=== PATIENT | female | born 1985 | race African-American/Black ===

== ENCOUNTER 2017-05-26 09:03 | Emergency (ER) | payer SELFPAY ==
[2017-05-26] MEDS ORDERED: Acetaminophen 500 MG TAB ONE (11:27)
--- NOTE | 2017-05-26 12:08 | RAD ---
FRONTAL AND LATERAL IMAGING OF THE CHEST: DATE: 05/26/17. COMPARISON: 04/12/15. HISTORY: Neck pain and back pain. FINDINGS: There is stable distortion of the lateral ribs within the mid right hemithorax. Heart and mediastina l contours are stable. There is no pneumothorax, pleural fluid, focal consolidation, or alveolar barbara ma. 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 No acute findings are noted. IMPRESSION: Congenital osseous deformities as detailed above, stable. No focal consolidation or evidence of pulm onary edema. POS: [facility]
[2017-05-26 12:19] LABS: #Basophils 0.1 thou/uL (0.0-0.2); #Lymphocytes 1.7 thou/uL (1.20-3.40); #Monocytes 0.3 thou/uL (0.11-0.59); #Neutrophils 4.6 thou/uL (1.40-6.50); %Basophils 0.8 % (0.0-1.0); %Eosinophils 0.3 % (0.0-10.0); %Lymphocytes 25.8 % (21.0-51.0); %Monocytes 4.7 % (0.0-10.0); Hematocrit 39.7 % (36.0-47.0); Mean Platelet Volume 9.5 fL (7.4-10.4); Red Blood Cell (RBC) Count 4.65 mill/uL (4.20-5.40); White Blood Cell (WBC) Count 6.7 thou/uL (4.8-10.8)
[2017-05-26 12:41] LABS: Anion Gap 8 mmol/L (10-20); BUN (Urea Nitrogen) 7 mg/dL (7.0-18.7); Calc. Creatinine Clearance 0 mL/min (70-130); Calcium 7.2 mg/dL (7.8-10.44); Carbon Dioxide 31 mmol/L (22-29); Chloride 103 mmol/L (98-107); Estimated GFR-MDRD Greater than 90
[2017-05-26 12:48] LABS: Troponin I Less than 0.010 ng/mL (< 0.028)
== END 2017-05-26 14:24 | disposition home or self-care (01) ==
LOC: ERS 09:03
DX: N63.0 Unspecified lump in unspecified breast (principal); E10.9 Type 1 diabetes mellitus without complications
CPT/HCPCS: 71020; 80048; 82553; 84484; 85025; 85379; 93005; 96360

== ENCOUNTER 2017-10-10 14:33 | Outpatient (CLI) | payer MEDICAID | END 2017-10-10 14:34 | disposition home or self-care (01) | LOC: BICMAMMO 14:33 | PROVIDERS: ATTEND Nurse Practitioner Women's Health | DX: N63.10 Unspecified lump in the right breast, unspecified quadrant (principal); N63.20 Unspecified lump in the left breast, unspecified quadrant | CPT/HCPCS: 77066; G0279 ==

== ENCOUNTER 2017-10-16 09:37 | Emergency (ER) | payer MEDICAID, SELFPAY ==
[2017-10-16 10:26] LABS: #Lymphocytes 1.3 thou/uL (1.20-3.40); #Monocytes 0.2 thou/uL (0.11-0.59); #Neutrophils 4.8 thou/uL (1.40-6.50); %Basophils 0.6 % (0.0-1.0); %Eosinophils 0.7 % (0.0-10.0); %Lymphocytes 20.5 % (21.0-51.0); %Monocytes 3.5 % (0.0-10.0); %Neutrophils 74.7 % (42.0-75.0); Hemoglobin 12.6 g/dL (12.0-16.0); Mean Corpuscular HGB CONC 34.1 g/dL (32.0-36.0); Mean Corpuscular Hemoglobin 28.7 pg (27.0-31.0); Mean Platelet Volume 9.1 fL (7.4-10.4); Platelet Count 183 thou/uL (130-400); RBC Distribution Width 11.8 % (11.5-14.5); Red Blood Cell (RBC) Count 4.38 mill/uL (4.20-5.40); White Blood Cell (WBC) Count 6.4 thou/uL (4.8-10.8)
[2017-10-16 10:49] LABS: ALT (SGPT) 9 U/L (8-55); AST (SGOT) 12 U/L (5-34); Albumin 3.5 g/dL (3.5-5.0); Alkaline Phosphatase 64 U/L (40-150); Anion Gap 12 mmol/L (10-20); BUN (Urea Nitrogen) 10 mg/dL (7.0-18.7); Bilirubin, Total 0.4 mg/dL (0.2-1.2); Calc. Creatinine Clearance 0 mL/min (70-130); Calcium 6.6 mg/dL (7.8-10.44); Carbon Dioxide 26 mmol/L (22-29); Chloride 101 mmol/L (98-107); Estimated GFR-MDRD Greater than 90; Globulin 3.4 g/dL (2.4-3.5); Glucose 295 mg/dL (70-105); Lipase 70 U/L (8-78); Protein, Total 6.9 g/dL (6.0-8.3); Sodium 135 mmol/L (136-145)
[2017-10-16 11:50] LABS: Bilirubin Negative (Negative); Blood, Urine Small (Negative); Clarity CLEAR (Clear); Glucose, Urine (Dipstick) 500 mg/dL (Negative); Leukocyte Negative (Negative); Nitrite Negative (Negative); Protein, Urine (Dipstick) Trace mg/dL (Neg-Trace); Specific Gravity, Urine 1.016 (1.002-1.036); Urobilinogen 0.2 mg/dL (0.2-1.0)
[2017-10-16 11:58] LABS: Bacteria/HPF None Seen HPF (None Seen); Hyaline Casts/LPF 0-3 HYALINE CAST LPF (0-3 Hyaline); Pathc Cast-AUWi Flag 0.14 (0-2.49); Pregnancy Test - Urine (BHCG) Negative (Negative); Pregu Control Background? CLEAR/WHITE (CLR/WHITE); Pregu Control Bar Appear? YES (CONTROL BAR); Specific Gravity 1.016 (1.002-1.036); Squamous Epithelial 0-3 HPF (0-3); WBC/HPF None Seen HPF (0-3)
--- NOTE | 2017-10-16 13:08 | CT ---
CT OF ABDOMEN AND PELVIS PERFORMED WITH INTRAVENOUS CONTRAST ENHANCEMENT: HISTORY: Abdominal pain x 3 days. COMPARISON: A 12/17/13 study. Review is also made of a 01/10/17 study. FINDINGS: The lung bases are clear. The liver, spleen, pancreas, and gallbladder regions appear unremarkable. Right and left adrenal glands and right and left kidneys are normal in size. There is no significant periaortic or mesenteric lymphadenopathy. CT OF PELVIS PERFORMED WITH INTRAVENOUS CONTRAST ENHANCEMENT: The lack of oral contrast and lack of intraabdominal fat significantly degrades detail. I see what I believe to be a normal appendix. There is a cystic-appearing structure which is probably a right ad nexal cyst, although it could be an unopacified bowel loops. It measures 3.1 cm in size. It has stevie e internal septation, probably a complex cyst. There is no significant free fluid seen. IMPRESSION: Lack of intraabdominal fat degrades the detail. I do not see any evidence for appendicitis. There i s a probable right ovarian cyst present. Pelvic ultrasound may be helpful in further assessment. POS: [facility]
[2017-10-16] MEDS ORDERED: ISOVUE-370 76%-LOCM 1 ML ONE (13:38)
== END 2017-10-16 14:17 | disposition home or self-care (01) ==
LOC: ERS 09:37
DX: N83.201 Unspecified ovarian cyst, right side (principal); E10.9 Type 1 diabetes mellitus without complications
CPT/HCPCS: 36415; 36416; 74177; 80053; 81003; 81015; 81025; 83690; 85025

== ENCOUNTER 2018-07-23 12:07 | Emergency (ER) | payer BC, MEDICAID ==
[~2018-07-23 12:07] MED LIST: ISOVUE-370 76%-LOCM 1 ML ONE
[2018-07-23 13:50] LABS: #Eosinphils 0.1 thou/uL (0.0-0.7); #Lymphocytes 1.6 thou/uL (1.20-3.40); #Monocytes 0.3 thou/uL (0.11-0.59); #Neutrophils 4.6 thou/uL (1.40-6.50); %Basophils 0.7 % (0.0-1.0); %Eosinophils 0.8 % (0.0-10.0); %Lymphocytes 24.9 % (21.0-51.0); %Monocytes 3.8 % (0.0-10.0); %Neutrophils 69.9 % (42.0-75.0); Hemoglobin 12.9 g/dL (12.0-16.0); Mean Corpuscular HGB CONC 32.9 g/dL (32.0-36.0); Mean Corpuscular Hemoglobin 27.6 pg (27.0-31.0); Mean Corpuscular Volume 83.8 fL (78.0-98.0); Platelet Count 184 thou/uL (130-400); RBC Distribution Width 11.6 % (11.5-14.5); Red Blood Cell (RBC) Count 4.67 mill/uL (4.20-5.40); White Blood Cell (WBC) Count 6.5 thou/uL (4.8-10.8)
[2018-07-23 14:09] LABS: BHCG - Serum Negative (NEGATIVE); Pregs Control Background? CLEAR/WHITE (CLR/WHITE); Pregs Control Bar Appear? YES (CONTROL BAR)
[2018-07-23 14:10] LABS: ALT (SGPT) Less than 7 U/L (8-55); AST (SGOT) 10 U/L (5-34); Albumin 3.9 g/dL (3.5-5.0); Alkaline Phosphatase 76 U/L (40-150); Anion Gap 12 mmol/L (10-20); BUN (Urea Nitrogen) 9 mg/dL (7.0-18.7); Bilirubin, Total 0.6 mg/dL (0.2-1.2); Calc. Creatinine Clearance 0 mL/min (70-130); Calcium 7.4 mg/dL (7.8-10.44); Carbon Dioxide 28 mmol/L (22-29); Chloride 99 mmol/L (98-107); Estimated GFR-MDRD 84; Globulin 3.8 g/dL (2.4-3.5); Glucose 373 mg/dL (70-105); Lipase 75 U/L (8-78); Potassium 4.1 mmol/L (3.5-5.1); Protein, Total 7.7 g/dL (6.0-8.3); Sodium 135 mmol/L (136-145)
[2018-07-23 14:35] LABS: Bilirubin Negative (Negative); Blood, Urine Large (Negative); Clarity CLOUDY (Clear); Glucose, Urine (Dipstick) >=1000 mg/dL (Negative); Leukocyte Small (Negative); Nitrite Negative (Negative); Protein, Urine (Dipstick) 100 mg/dL (Neg-Trace); Specific Gravity, Urine 1.034 (1.002-1.036)
[2018-07-23 14:36] LABS: Bacteria/HPF None Seen HPF (None Seen); Hyaline Casts/LPF 0-3 HYALINE CAST LPF (0-3 Hyaline); Pathc Cast-AUWi Flag 0.53 (0-2.49); RBC/HPF GREATER THAN 50-TNTC HPF (0-3); WBC/HPF 21-50 HPF (0-3)
--- NOTE | 2018-07-23 15:19 | CT ---
CT ABDOMEN AND PELVIS WITH IV CONTRAST: HISTORY: Abdominal pain. Umbilical hernia. COMPARISON: 10/16/2017. FINDINGS: Lung bases are clear. The liver, spleen, kidneys, adrenal glands, and pancreas have a normal CT appe arance. No evidence of umbilical hernia. Appendix not well visualized. No inflammation is apparent . At the expected location of the right adnexa is a well-circumscribed oval homogeneous fluid densit y mass measuring up to 4.7 cm. IMPRESSION: Large right ovarian cyst. POS: [facility]
== END 2018-07-23 15:57 | disposition home or self-care (01) ==
LOC: ERS 12:07
DX: R10.33 Periumbilical pain (principal); E10.9 Type 1 diabetes mellitus without complications
CPT/HCPCS: 36415; 74177; 80053; 81003; 81015; 83605; 83690; 84703; 85025; 87086; Q9966

== ENCOUNTER 2018-08-19 00:39 | Observation (INO) | payer BC ==
[2018-08-19 01:32] LABS: BHCG - Serum Negative (NEGATIVE); Pregs Control Background? CLEAR/WHITE (CLR/WHITE); Pregs Control Bar Appear? YES (CONTROL BAR)
[2018-08-19 01:34] LABS: Hemoglobin 12.2 g/dL (12.0-16.0); Mean Corpuscular HGB CONC 32.5 g/dL (32.0-36.0); Mean Corpuscular Hemoglobin 27.5 pg (27.0-31.0); Mean Corpuscular Volume 84.7 fL (78.0-98.0); Mean Platelet Volume 9.6 fL (7.4-10.4); Platelet Count 174 thou/uL (130-400); RBC Distribution Width 11.9 % (11.5-14.5); Red Blood Cell (RBC) Count 4.44 mill/uL (4.20-5.40); White Blood Cell (WBC) Count 15.4 thou/uL (4.8-10.8)
[2018-08-19 01:40] LABS: Band 8 % (5-11); Lymphocytes 11 % (21-51); MDiff Complete? YES; Neutrophil 81 % (42-75); Platelet Morphology Comment Appears Adequate
[2018-08-19 01:50] LABS: ALT (SGPT) 8 U/L (8-55); AST (SGOT) 12 U/L (5-34); Albumin 3.3 g/dL (3.5-5.0); Alkaline Phosphatase 59 U/L (40-150); Anion Gap 10 mmol/L (10-20); BUN (Urea Nitrogen) 9 mg/dL (7.0-18.7); Bilirubin, Total 0.9 mg/dL (0.2-1.2); Calc. Creatinine Clearance 0 mL/min (70-130); Calcium 7.1 mg/dL (7.8-10.44); Carbon Dioxide 28 mmol/L (22-29); Chloride 101 mmol/L (98-107); Estimated GFR-MDRD Greater than 90; Globulin 3.3 g/dL (2.4-3.5); Glucose 329 mg/dL (70-105); Lipase 32 U/L (8-78); Magnesium 1.3 mg/dL (1.6-2.6); Potassium 3.2 mmol/L (3.5-5.1); Protein, Total 6.6 g/dL (6.0-8.3); Sodium 136 mmol/L (136-145)
[2018-08-19 02:23] LABS: Bilirubin Negative (Negative); Blood, Urine Small (Negative); Clarity CLEAR (Clear); Glucose, Urine (Dipstick) >=1000 mg/dL (Negative); Leukocyte Negative (Negative); Nitrite Negative (Negative); Protein, Urine (Dipstick) 100 mg/dL (Neg-Trace); Specific Gravity, Urine 1.037 (1.002-1.036)
[2018-08-19 02:26] LABS: Bacteria/HPF Rare-Few HPF (None Seen); Hyaline Casts/LPF 4-6 HYALINE CAST LPF (0-3 Hyaline); Pathc Cast-AUWi Flag 1.01 (0-2.49); Squamous Epithelial 0-3 HPF (0-3); WBC/HPF 0-3 HPF (0-3)
[2018-08-19 02:30] LABS: Phosphorus 4.3 mg/dL (2.3-4.7)
[2018-08-19 02:49] LABS: Base Excess-Venous 1.3 mmol/L (-2.0 to 3.0); Bicarbonate (HCO3v) 26.7 mmol/L (22.0-28.0); CO2 Tension (PvCO2) 44.3 mmHg (40.0-50.0); Calcium, Ionized 0.79 mmol/L (See Comments:); Chloride 102 mmol/L (98-107); Hemoglobin - Calc 12.5 g/dL (12.0-16.0); O2 Tension (PvO2) 49.4 mmHg (35.0-45.0); Potassium 3.1 mmol/L (3.5-5.1); Sodium 138 mmol/L (138-145); T. Carbon Dioxide 28.1 mmol/L (22.0-28.0); pH (Venous) 7.389 (7.320-7.430); vO2 Saturation-calc 83.9 % (60.0-85.0)
[2018-08-19] MEDS ORDERED: Mag-Al 1200 mg/1200 mg/30 ML UDCUP ONE (03:17)
[2018-08-19] MEDS ORDERED: Lidocaine Viscous Sol 2% 15 ml UD Cup ONE (03:17)
[2018-08-19] MEDS ORDERED: Potassium Chloride 20 MEQ TAB ONE (04:11)
[2018-08-19] MEDS ORDERED: Calcium Gluc 4.6 MEQ/10 ML (100 MG/ML) ONE (04:17)
[2018-08-19] MEDS ORDERED: Magnesium 2 GM/50 ML BAG (IN WATER) ONE (04:17)
[2018-08-19] MEDS ORDERED: Insulin Regular 300 UNITS/3 ML VIAL ONE (04:19)
[2018-08-19] MEDS ORDERED: Piperacillin/Tazobactam 3.375 GM VIAL ONE (04:32)
[2018-08-19] MEDS ORDERED: Ondansetron PF 4 MG/2 ML Vial ONE (06:41)
[2018-08-19] MEDS ORDERED: Morphine 4 MG/ML VIAL ONE (07:22)
--- NOTE | 2018-08-19 07:44 | RAD ---
CHEST 1 VIEW: HISTORY: Pain. COMPARISON: 06/11/2012. FINDINGS: Enlarged cardiac silhouette. The pulmonary vessels and hilum are normal. Costophrenic angles are cl ear. No masses or consolidation. No pneumothorax or osseous abnormalities. IMPRESSION: No acute cardiopulmonary process. POS: [facility]
--- NOTE | 2018-08-19 08:04 | ULT ---
PRELIMINARY REPORT/[facility]/EMERGENTY AFTER-HOURS PROCEDURE US Pelvis Complete, Transabdominal EXAM DATE/TIME: 08/19/2018 1:24 AM CLINICAL HISTORY: 33 years old, female; Pain and signs and symptoms; Constipation; Slow transit; Pelvic pain TECHNIQUE: Real-time transabdominal pelvic ultrasound with image documentation. Complete exam. COMPARISON: No relevant prior studies available. FINDINGS: Uterus/cervix: The uterus measures 7.8 x 4.5 x 6.0 cm. Endometrial stripe thickness is 8 mm. Right adnexa: The right ovary measures 3.0 x 1.7 x 1.8 cm with normal Doppler flow. Left adnexa: The left ovary measures 3.8 x 3.3 x 3.3 cm with normal Doppler flow. Free fluid: None. Bladder: Normal. IMPRESSION: No acute sonographic pathology. Thank you for allowing us to participate in the care of your patient. Dictated and Authenticated by: Neil José MD 08/19/2018 2:18 AM Central Time ([place] & [place]) FINAL REPORT PELVIC ULTRASOUND: HISTORY: Pelvic pain. Symptoms x 2 days. COMPARISON: None. TECHNIQUE: Transabdominal imaging of the pelvis is performed. Ovaries are interrogated with morfin scale, color f low, Doppler imaging, and spectral waveform analysis. FINDINGS: This report is in agreement with the preliminary report by [facility]. Slightly limited evaluation due to b owel gas. No abnormalities within the pelvis. Normal endometrium with an 8 mm thickness is noted. Both ovaries have a normal echotexture with vascular flow. POS: [facility]
--- NOTE | 2018-08-19 09:04 | CT ---
PRELIMINARY REPORT/[facility]/EMERGENTY AFTER-HOURS PROCEDURE Addendum created by Trinh Moser MD on 08/19/2018 4:54 AM Central Time ([place]) THIS REPORT CONTAI NS FINDINGS THAT MAY BE CRITICAL TO PATIENT CARE. The findings were verbally communicated via telepho ne conference with GENNARO GARCIA at 4:54 AM GRAPHICS SOFTWARE ENGINEER on 08/19/2018. The findings were acknowledged and unde rstood. Initial Report created on 08/19/2018 4:51 AM Central Time ([place] & [place]) CT Abdomen and Pelvis With Contrast EXAM DATE/TIME: 08/19/2018 3:34 AM CLINICAL HISTORY: 33 years old, female; Pain; Abdominal pain; Generalized; Patient HX: PT reports having a couple day h istory of generalized abdominal pain. PT reports it hurts to move due to the pain. States pain as sha rp. Reports worse on both lower quadrants. Reports nausea and vomiting x1. Reports having chills. Den ies fever TECHNIQUE: Axial computed tomography images of the abdomen and pelvis with intravenous contrast. Coronal reforma tted images were created and reviewed. COMPARISON: US MANAGER MAIL 08/19/2018 1:24 AM FINDINGS: Lower thorax: No acute findings. ABDOMEN: Liver: Normal. No mass. Gallbladder and bile ducts: Normal. No calcified stones. No ductal dilation. Pancreas: Normal. No ductal dilation. Spleen: Normal. No splenomegaly. Adrenals: Normal. No mass. Kidneys and ureters: Normal. No hydronephrosis. Stomach and bowel: Mild jejunal wall thickening likely represents enteritis. Appendix: The base of the appendix is minimally thickened measuring 8 mm with enhancing wall. PELVIS: Bladder: Mild thickening of the urinary bladder wall is likely due to underdistention. Cystitis is no t excluded. Reproductive: Dilated periuterine vessels on both sides worse on the left likely represents pelvic co ngestion syndrome. ABDOMEN and PELVIS: Intraperitoneal space: Moderate free fluid is seen in the pelvis. No evidence of free air in the abdo men. Bones/joints: No acute fracture. No dislocation. Soft tissues: Unremarkable. Vasculature: Normal. No abdominal aortic aneurysm. Lymph nodes: Normal. No enlarged lymph nodes. IMPRESSION: 1. The base of the appendix is minimally thickened measuring 8 mm with enhancing wall. Early appendic itis is not excluded. 2. Mild jejunal wall thickening likely represents enteritis. 3. Dilated periuterine vessels on both sides worse on the left likely represents pelvic congestion sy ndrome. 4. Moderate free fluid in the pelvis is likely reactive. Thank you for allowing us to participate in the care of your patient. Dictated and Authenticated by: Trinh Moser MD 08/19/2018 4:51 AM Central Time ([place]) FINAL REPORT ABDOMEN CT WITH CONTRAST PELVIC CT WITH CONTRAST: HISTORY: Generalized abdominal pain. Vomiting and nausea. Chills. COMPARISON: 07/23/2018. FINDINGS: This report is in agreement with the preliminary report by [facility]. There is fluid attenuation and mild prominence of the base and proximal aspect of the appendix. The distal portion of the appendix is st ill air filled. Correlate for early appendicitis. There is mild thickening of the small bowel wall, specifically at the level of the jejunum. Correlate for enteritis. There are asymmetrically enlarg ed left pelvic vessels. Correlate for pelvic congestion syndrome. There is free fluid in the pelvis which may be reactive. POS: [facility]
--- NOTE | 2018-08-19 09:37 | CT ---
CT ABDOMEN AND PELVIS WITH IV CONTRAST: INDICATIONS: Rule out appendicitis. COMPARISON: Recent CT of the abdomen and pelvis dated 08/19/2018. CONTRAST: IV contrast 96 mL. FINDINGS: The appendix, in the right lower quadrant, measures 6 mm, without periappendiceal fat stranding or a drainable fluid collection. There is minimal free fluid within the pelvis. There is a mild amount o f retained stool within the colon. The lung bases are clear. The liver, pancreas, adrenal glands, a nd kidneys appear within normal limits. There is a butterfly vertebra involving T9. IMPRESSION: 1. The appendix measures 6 mm, within the right lower quadrant, without periappendiceal fat strandin g or fluid that would be suspicious for appendicitis. There is no overt CT evidence to suggest appen dicitis. Recommend correlation with clinical examination. 2. Other findings as detailed above. POS: [facility]
[2018-08-19] MEDS ORDERED: Iopamidol 370 76% 50 ML VIAL FS ONE (10:09)
[2018-08-19] MEDS ORDERED: ISOVUE-370 76%-LOCM 1 ML ONE (10:09)
[2018-08-19] MEDS ORDERED: Promethazine HCl 25 MG/ML VIAL IM PRN (12:12)
[2018-08-19] MEDS ORDERED: Dextrose 50% Abboject 50 ML SYRINGE SLOW IVP PRN (12:12)
[2018-08-19] MEDS ORDERED: Morphine 4 MG/ML VIAL SLOW IVP PRN ×2 (12:12)
[2018-08-19] MEDS ORDERED: HumaLOG 300 UNITS/3 ML VIAL SC PRN (12:12)
[2018-08-19] MEDS ORDERED: Dextrose 5% in Water 1,000 ML IV PRN (12:12)
[2018-08-19] MEDS ORDERED: Ondansetron PF 4 MG/2 ML Vial IVP PRN (12:12)
[2018-08-19] MEDS ORDERED: hydrALAZINE 20 MG/ML VIAL SLOW IVP PRN (12:12)
[2018-08-19] MEDS: Acetaminophen 1,000 MG in Premix Bag 1 BAG IVPB PRN ×2 (12:59→20:26)
[2018-08-19] MEDS: Sodium Chloride 0.9% 1,000 ML IV SCH ×2 (12:59→23:12)
[2018-08-19] MEDS: Piperacillin/Tazobactam 3.375 GM in Sodium Chloride 0.9% 100 ML IVPB SCH ×3 (13:00→23:12)
[2018-08-19 14:55] VITALS: BMI 22.4
[2018-08-19] MEDS ORDERED: Magnesium 2 GM/50 ML 2 GM in Premix Bag 1 BAG IVPB SCH (15:00)
[2018-08-19] MEDS: Famotidine 20 MG TAB PO SCH (20:26)
--- NOTE | 2018-08-19 22:05 | HP ---
CHIEF COMPLAINT: Lower abdominal pain. HISTORY OF PRESENT ILLNESS: This is a 33-year-old female with a history of uncontrolled diabetes mellitus, who presents with a history of diffuse abdominal pain associated with constipation for the last 5 days. She had a fever in the ambulance and so she was seen in the ER under "sepsis protocol." Her initial CT without contrast showed dilation of a portion of her appendix with the possibility of appendicitis, but also a small amount of free fluid. She had similar symptoms a month ago and was found to have a large right ovarian cyst. She never had followup for that. She denies a history of chronic abdominal pain or inflammatory bowel disease, specifically Crohn disease. No history of diarrhea, bloody diarrhea, food fear, chronic nausea, vomiting, or weight loss. She is diabetic, but she does not check her sugars much and does not consistently take her medications. PAST MEDICAL HISTORY: Diabetes mellitus, insulin-dependent. PAST SURGICAL HISTORY: She denies. MEDICATIONS TAKEN DAILY: None. SOCIAL HISTORY: Occasional smoking. Occasional alcohol. No other drugs. REVIEW OF SYSTEMS: Ten-system review of systems is otherwise negative, unless described above. PHYSICAL EXAMINATION: HEENT: Sclerae are anicteric. Oropharynx is clear. NECK: No lymphadenopathy. CHEST: Clear. HEART: Regular rate and rhythm. ABDOMEN: Soft. She is mildly tender in the lower abdomen without guarding or rebound. EXTREMITIES: No ischemia or edema to extremities. LABORATORY DATA: White cell count is 15, hemoglobin is 12. Creatinine is 0.81. Liver function tests normal. Initial CT scan, base of the appendix minimally thickened, mild jejunal wall thickening, free fluid. Repeat CT with contrast showed 6-mm appendix without fat stranding or fluid. Pelvic ultrasound shows no acute findings. ASSESSMENT: 1. Lower abdominal discomfort with free fluid on CT scan, but no significant signs of appendicitis except for 6-mm in diameter appendix without periappendiceal inflammation. 2. History of right ovarian cyst, now absent, free fluid in the abdomen could be secondary to that. PLAN: Admit to observation. Insulin sliding scale. Replete Mag. Repeat her white blood cell count tomorrow. If pain is not improved or if white blood cell count does not resolve, plan laparoscopy. Job ID: [id number]
[2018-08-19] MEDS: Famotidine/PF 20 mg/2ml Vial SLOW IVP SCH (22:45)
[2018-08-20] MEDS: Piperacillin/Tazobactam 3.375 GM in Sodium Chloride 0.9% 100 ML IVPB SCH ×2 (05:39→12:01)
[2018-08-20 06:18] LABS: #Basophils 0.1 thou/uL (0.0-0.2); #Eosinphils 0.1 thou/uL (0.0-0.7); #Lymphocytes 1.3 thou/uL (1.20-3.40); #Monocytes 0.3 thou/uL (0.11-0.59); #Neutrophils 3.7 thou/uL (1.40-6.50); %Basophils 0.9 % (0.0-1.0); %Eosinophils 1.6 % (0.0-10.0); %Lymphocytes 24.2 % (21.0-51.0); %Neutrophils 68.3 % (42.0-75.0); Mean Corpuscular HGB CONC 32.8 g/dL (32.0-36.0); Mean Corpuscular Hemoglobin 28.5 pg (27.0-31.0); Mean Corpuscular Volume 86.7 fL (78.0-98.0); Mean Platelet Volume 9.3 fL (7.4-10.4); Platelet Count 170 thou/uL (130-400); RBC Distribution Width 12.1 % (11.5-14.5); Red Blood Cell (RBC) Count 3.88 mill/uL (4.20-5.40); White Blood Cell (WBC) Count 5.4 thou/uL (4.8-10.8)
[2018-08-20 06:39] LABS: Anion Gap 14 mmol/L (10-20); BUN (Urea Nitrogen) 7 mg/dL (7.0-18.7); Calc. Creatinine Clearance 102 mL/min (70-130); Calcium 6.2 mg/dL (7.8-10.44); Carbon Dioxide 20 mmol/L (22-29); Chloride 108 mmol/L (98-107); Estimated GFR-MDRD Greater than 90; Glucose 110 mg/dL (70-105); Potassium 3.4 mmol/L (3.5-5.1); Sodium 139 mmol/L (136-145)
[2018-08-20] MEDS: Famotidine 20 MG TAB PO SCH (08:08)
[2018-08-20] MEDS: Sodium Chloride 0.9% 1,000 ML IV SCH ×2 (08:09→14:41)
[2018-08-20] MEDS: Famotidine/PF 20 mg/2ml Vial SLOW IVP SCH (08:09)
[2018-08-20] MEDS ORDERED: Acetaminophen 500 MG TAB PO PRN (14:19)
--- NOTE | 2018-08-20 14:37 | DIS ---
DATE OF ADMISSION: 08/19/2018 DATE OF DISCHARGE: 08/20/2018 ADMISSION DIAGNOSIS: Lower abdominal pain. DISCHARGE DIAGNOSES: 1. Lower abdominal pain. 2. Ruptured ovarian cyst. CONDITION ON DISCHARGE: Improved. HOSPITAL COURSE: The patient was admitted with a small amount of dilation of her base of appendix, but no inflammatory change consistent with appendicitis. She has had a previous large right ovarian cyst that was not seen on this most recent CT. She had small amount of free fluid in the pelvis. She was admitted for observation, recheck infectious count and rule out appendicitis. Her exam is improved. She is afebrile. Her pain is resolved. She is nontender in the right lower quadrant now. Her white blood cell count is repeated and normal. She has been afebrile overnight. She is discharged home. She will follow up with me in the office next week. Job ID: [id number]
[2018-08-20 15:31] VITALS: BP 141/91; TEMP 98.2
== END 2018-08-20 16:16 | disposition home or self-care (01) ==
LOC: ERS 00:39 → SURG A 10:41 → INTOOBSV 10:41
PROVIDERS: ADMIT Surgery; ATTEND Surgery
DX: N83.201 Unspecified ovarian cyst, right side (principal); E11.9 Type 2 diabetes mellitus without complications; F17.200 Nicotine dependence, unspecified, uncomplicated; Z79.4 Long term (current) use of insulin
CPT/HCPCS: 36415; 36416; 71045; 74177; 76856; 80048; 80053; 81003; 81015; 82010; 82330; 82803; 83605; 83690; 83735; 84100; 84145; 84484; 84703; 85025; 87040; 87077; 87086; 87149; 87804; 93976; 96361; 96365; 96366; 96367; 96375; 96376; G0378; J0131; J1815; J2270; J2405; J2543; J3370; J3475; J7050; Q9966; Q9967; S0028

== ENCOUNTER 2018-11-17 20:20 | Emergency (ER) | payer BC ==
[2018-11-17 22:11] LABS: Bilirubin Negative (Negative); Blood, Urine Small (Negative); Clarity CLEAR (Clear); Glucose, Urine (Dipstick) >=1000 mg/dL (Negative); Leukocyte Negative (Negative); Nitrite Negative (Negative); Protein, Urine (Dipstick) 30 mg/dL (Neg-Trace); Specific Gravity, Urine 1.029 (1.002-1.036)
[2018-11-17 22:13] LABS: Pregnancy Test - Urine (BHCG) Negative (Negative); Pregu Control Background? CLEAR/WHITE (CLR/WHITE); Pregu Control Bar Appear? YES (CONTROL BAR); Specific Gravity 1.029 (1.002-1.036)
[2018-11-17] MEDS ORDERED: Ketorolac Tromethamine 30 MG/ML VIAL ONE (22:14)
[2018-11-17] MEDS ORDERED: Acetaminophen 500 MG TAB ONE (22:14)
[2018-11-17] MEDS ORDERED: Ondansetron PF 4 MG/2 ML Vial ONE (22:14)
[2018-11-17 22:21] LABS: Bacteria/HPF Rare-Few HPF (None Seen); Hyaline Casts/LPF 0-3 HYALINE CAST LPF (0-3 Hyaline); WBC/HPF 0-3 HPF (0-3)
== END 2018-11-17 23:40 | disposition home or self-care (01) ==
LOC: ERS 20:20
DX: R51 Headache (principal); E10.9 Type 1 diabetes mellitus without complications
CPT/HCPCS: 81003; 81015; 81025; 96361; 96374; 96375; J1885; J2405

== ENCOUNTER 2018-12-14 12:24 | Emergency (ER) | payer BC ==
[2018-12-14 14:11] LABS: Bilirubin Negative (Negative); Blood, Urine Small (Negative); Clarity CLEAR (Clear); Glucose, Urine (Dipstick) >=1000 mg/dL (Negative); Leukocyte Negative (Negative); Nitrite Negative (Negative); Protein, Urine (Dipstick) Negative (Neg-Trace); Urobilinogen 0.2 mg/dL (0.2-1.0); pH, Urine 5.5 (5.0-9.0)
[2018-12-14 14:13] LABS: Bacteria/HPF None Seen HPF (None Seen); Hyaline Casts/LPF 0-3 HYALINE CAST LPF (0-3 Hyaline); RBC/HPF 0-3 HPF (0-3); Squamous Epithelial None Seen HPF (0-3); WBC/HPF None Seen HPF (0-3)
== END 2018-12-14 14:06 | disposition home or self-care (01) ==
LOC: ERS 12:24
DX: K42.9 Umbilical hernia without obstruction or gangrene (principal); L03.316 Cellulitis of umbilicus; E10.9 Type 1 diabetes mellitus without complications
CPT/HCPCS: 81003; 81015

== ENCOUNTER 2019-03-09 15:06 | Outpatient (CLI) | payer BC ==
[2019-03-09 16:00] LABS: #Eosinphils 0.1 thou/uL (0.0-0.7); #Lymphocytes 1.5 thou/uL (1.20-3.40); #Monocytes 0.3 thou/uL (0.11-0.59); #Neutrophils 3.9 thou/uL (1.40-6.50); %Basophils 0.4 % (0.0-1.0); %Eosinophils 0.9 % (0.0-10.0); %Lymphocytes 26.3 % (21.0-51.0); %Monocytes 5.5 % (0.0-10.0); Hemoglobin 12.1 g/dL (12.0-16.0); Mean Corpuscular HGB CONC 34.2 g/dL (32.0-36.0); Mean Corpuscular Hemoglobin 28.5 pg (27.0-31.0); Mean Corpuscular Volume 83.3 fL (78.0-98.0); Mean Platelet Volume 9.6 fL (7.4-10.4); Platelet Count 183 thou/uL (130-400); RBC Distribution Width 11.5 % (11.5-14.5); Red Blood Cell (RBC) Count 4.27 mill/uL (4.20-5.40); White Blood Cell (WBC) Count 5.9 thou/uL (4.8-10.8)
[2019-03-09 16:12] LABS: BHCG - Serum Negative (NEGATIVE); Pregs Control Background? CLEAR/WHITE (CLR/WHITE); Pregs Control Bar Appear? YES (CONTROL BAR)
[2019-03-09 16:18] LABS: Anion Gap 11 mmol/L (10-20); BUN (Urea Nitrogen) 8 mg/dL (7.0-18.7); Calc. Creatinine Clearance 0 mL/min (70-130); Calcium 7.2 mg/dL (7.8-10.44); Carbon Dioxide 30 mmol/L (22-29); Chloride 99 mmol/L (98-107); Estimated GFR-MDRD 87; Glucose 320 mg/dL (70-105); Potassium 3.2 mmol/L (3.5-5.1); Sodium 137 mmol/L (136-145)
--- NOTE | 2019-03-10 16:54 | EKG ---
Test Reason : Blood Pressure : / mmHG Vent. Rate : 078 BPM Atrial Rate : 078 BPM P-R Int : 134 ms QRS Dur : 076 ms QT Int : 426 ms P-R-T Axes : 055 050 043 degrees QTc Int : 485 ms Normal sinus rhythm Prolonged QT Abnormal ECG When compared with ECG of 26-MAY-2017 10:21, No significant change was found Confirmed by DR. Riya BAY ([id number]) on 03/10/2019 4:54:34 PM Referred By: KEKE Confirmed By:DR. Riya BAY
== END 2019-03-09 15:07 | disposition home or self-care (01) ==
LOC: LABBT 15:06
PROVIDERS: ATTEND Specialist
DX: Z01.818 Encounter for other preprocedural examination (principal); L72.3 Sebaceous cyst; N63.0 Unspecified lump in unspecified breast; D37.3 Neoplasm of uncertain behavior of appendix
CPT/HCPCS: 80048; 84703; 85025; 93005; 93010

== ENCOUNTER 2019-03-10 06:00 | Day surgery (SDC) | payer BC ==
--- NOTE | 2019-03-08 14:09 | HP ---
HISTORY OF PRESENT ILLNESS: Clementine Larson is a 33-year-old black female, whom I saw in 2017 with bilateral breast mass. This was probably benign and biopsy was planned, . She now presents to see me regarding an umbilical mass that is very painful. She has had CT scans and demonstrated an 8-mm appendix. The plan is for laparoscopic appendectomy and then resection of the umbilical mass, umbilical hernia repair, open is indicated. She understands risks and benefits and consents. The patient has had enlarging breast masses. These are very large. Mammogram and ultrasound had been obtained revealing dense breast. Physical exam reveals dense breast. FAMILY HISTORY: Negative for breast cancer except for her . Mammogram on 10/18/2017, no evidence of malignancy, dense breasts. . ALLERGIES: NONE. MEDICATIONS: Humalog insulin 5 units before meals. PAST MEDICAL HISTORY: Diabetes. PAST SURGICAL HISTORY: Noncontributory. REVIEW OF SYSTEMS: Noncontributory. PHYSICAL EXAMINATION: VITAL SIGNS: 123 pounds 65 inches, 20.5 BMI, blood pressure 116/75, heart rate 85, temperature 98.6 degrees. HEAD, EARS, EYES, NOSE, AND THROAT: Unremarkable. LUNGS: Clear to auscultation. CARDIAC: Regular rate and rhythm without murmur or gallop. ABDOMEN: Large umbilical mass, is very tender, measures about 3 cm. There is a surrounding area of induration around this, another 4 cm. I cannot tell whether this is a hernia or a large cyst. Her abdomen is soft otherwise. EXTREMITIES: Unremarkable. AXILLA: Without lymphadenopathy. BREASTS: The patient has large central breast masses extending to the upper outer quadrants bilaterally. These are larger on the left than the right. These have smooth margins, mobile, but are lobulated. ASSESSMENT AND PLAN: 1. Bilateral breast masses. These are not seen on imaging. It was evaluated as bilateral breasts. These are slightly tender. We would recommend core biopsies under anesthesia at the time of her procedure above. 2. Umbilical mass, cannot be sure whether this is not a hernia. We would recommend open repair after laparoscopic appendectomy. 3. Enlarged appendix, which could be early mucinous changes. We would recommend laparoscopic appendectomy. Job ID: [id number]
[2019-03-09 15:21] VITALS: BMI 20.5
[2019-03-10] MEDS ORDERED: Ketorolac Tromethamine 30 MG/ML VIAL ONE (06:23)
[2019-03-10] MEDS ORDERED: MEROPENEM 1 GM/50 ML 1 GM in Premix Bag 1 BAG IVPB SCH (06:30)
[2019-03-10] MEDS ORDERED: Lidocaine 2% PF 5 ML VIAL ONE (06:36)
[2019-03-10] MEDS ORDERED: Bupivacaine HCl 0.5%/Epinephrine 1:200,000/PF 30 ml Vial ONE (06:36)
[2019-03-10] MEDS ORDERED: Bupivacaine/Epinephrine 0.25% 30 ML VIAL ONE (06:36)
[2019-03-10] MEDS ORDERED: Fentanyl 100 MCG/2 ML VIAL ONE (06:49)
[2019-03-10] MEDS ORDERED: Dexmedetomidine 200 MCG/2 ML VIAL ONE (06:50)
[2019-03-10] MEDS ORDERED: Midazolam HCl 2 mg/2 ml Vial ONE (07:00)
[2019-03-10] MEDS ORDERED: Insulin Regular 300 UNITS/3 ML VIAL ONE (07:08)
[2019-03-10] MEDS ORDERED: HYDROcodone/Acetaminophen 5/325 mg Tablet ONE (10:03)
--- NOTE | 2019-03-10 10:39 | OP ---
DATE OF PROCEDURE: 03/10/2019 PREOPERATIVE DIAGNOSES: Bilateral hyperdense posterior breasts centrally; umbilical mass; enlarged appendix on CAT scan. POSTOPERATIVE DIAGNOSES: Bilateral hyperdense posterior breast centrally; umbilical mass; enlarged appendix on CAT scan with very small umbilical hernia; Jrxi-[id number]-Reobwf; left ovarian cyst, functional and benign. PROCEDURE PERFORMED: Laparoscopic appendectomy; laparoscopic adhesiolysis; Xkex-Ffow-Wlonom adhesions liver to abdominal wall, right upper quadrant; umbilical mass resection with single stitch; umbilical hernia repair with umbilicoplasty; bilateral core biopsies, breast, right and left. ANESTHESIA: General, local 0.5% Marcaine with epinephrine 30 mL solution, 0.25% Marcaine with epinephrine 40 mL mixture used. DESCRIPTION OF PROCEDURE: The patient was taken to the operating room, where under general anesthesia, Chung catheter was placed at the beginning of the procedure and removed at the end. Abdomen was prepared with ChloraPrep and draped in routine fashion. Local anesthetic was infiltrated in the skin and subcutaneous tissue about the operative sites. Left periumbilical incision was made. Pneumoperitoneum to 15 mmHg was obtained with a Veress needle, replaced with a 5 port where laparoscope inserted. Right lateral subcostal incision was made and a 5 port placed, suprapubic incision was made, a 12 port placed. Functional ovarian cysts left noted. Fgxm-Slca-Snkuot adhesion was taken down between the right lobe of the liver and the abdominal wall. These were abundant. Appendix was slightly dilated. Mesoappendix was taken down with the LigaSure. Stump of the appendix divided with Endo-WILBERT blue load stapler. Stapled cecal stump was hemostatic, and appendix was removed, submitted to Pathology. Good hemostasis ensured. Hemoclips not necessary. Irrigant and pneumoperitoneum evacuated. All instruments were removed. An umbilical cyst mass excised, submitted to Pathology. There was a very small umbilical hernia defect, closed with a single suture of 0 PDS pop-off. Subcutaneous tissues were approximated. 3-0 Monocryl, skin with continuous type suture of 4-0 Monocryl with an umbilicoplasty type closure. Suprapubic fascia was approximated with 0 Vicryl. All skin incisions closed with interrupted subdermal 4-0 Monocryl. [place] glue applied. Bilateral breasts prepared with ChloraPrep. Medial stab incisions were made and core biopsies obtained from increased dense retroareolar central masses x2 on either side. These biopsies difficult, but obtained and submitted to Pathology. Dermabond applied. Local anesthetic applied. The patient tolerated the procedure well. Job ID: [id number]
== END 2019-03-10 10:40 | disposition home or self-care (01) ==
LOC: SDC 06:00
PROVIDERS: ATTEND Specialist
PROC: 0WBF0ZZ Excision of Abdominal Wall, Open Approach (ICD-10-PCS; principal; 2019-03-10)
PROC: 0DTJ4ZZ Resection of Appendix, Percutaneous Endoscopic Approach (ICD-10-PCS; principal; 2019-03-10)
PROC: 0HBV3ZX Excision of Bilateral Breast, Percutaneous Approach, Diagnostic (ICD-10-PCS; principal; 2019-03-10)
PROC: 0WQF0ZZ Repair Abdominal Wall, Open Approach (ICD-10-PCS; principal; 2019-03-10)
DX: K35.80 Unspecified acute appendicitis (principal); N60.32 Fibrosclerosis of left breast; N60.31 Fibrosclerosis of right breast; N61.0 Mastitis without abscess; D48.5 Neoplasm of uncertain behavior of skin; K42.9 Umbilical hernia without obstruction or gangrene; E11.9 Type 2 diabetes mellitus without complications; Z79.4 Long term (current) use of insulin
CPT/HCPCS: 36416; 88304; 88305; J0131; J0670; J1815; J1885; J2001; J2185; J2250; J3010

== ENCOUNTER 2019-03-13 03:02 | Emergency (ER) | payer BC ==
[2019-03-13] MEDS ORDERED: Ondansetron PF 4 MG/2 ML Vial ONE (03:47)
[2019-03-13 04:10] LABS: #Eosinphils 0.1 thou/uL (0.0-0.7); #Lymphocytes 1.6 thou/uL (1.20-3.40); #Monocytes 0.4 thou/uL (0.11-0.59); #Neutrophils 5.2 thou/uL (1.40-6.50); %Basophils 0.5 % (0.0-1.0); %Eosinophils 1.3 % (0.0-10.0); %Lymphocytes 21.8 % (21.0-51.0); %Monocytes 5.3 % (0.0-10.0); %Neutrophils 71.1 % (42.0-75.0); Hemoglobin 13.4 g/dL (12.0-16.0); Mean Corpuscular HGB CONC 34.2 g/dL (32.0-36.0); Mean Corpuscular Hemoglobin 28.6 pg (27.0-31.0); Mean Corpuscular Volume 83.4 fL (78.0-98.0); Mean Platelet Volume 9.5 fL (7.4-10.4); Platelet Count 191 thou/uL (130-400); RBC Distribution Width 11.5 % (11.5-14.5); Red Blood Cell (RBC) Count 4.71 mill/uL (4.20-5.40); White Blood Cell (WBC) Count 7.3 thou/uL (4.8-10.8)
[2019-03-13 04:16] LABS: BHCG - Serum Negative (NEGATIVE); Pregs Control Background? CLEAR/WHITE (CLR/WHITE); Pregs Control Bar Appear? YES (CONTROL BAR)
[2019-03-13 04:30] LABS: ALT (SGPT) 9 U/L (8-55); AST (SGOT) 12 U/L (5-34); Albumin 3.6 g/dL (3.5-5.0); Alkaline Phosphatase 62 U/L (40-150); Anion Gap 11 mmol/L (10-20); BUN (Urea Nitrogen) 8 mg/dL (7.0-18.7); Bilirubin, Total 0.4 mg/dL (0.2-1.2); Calc. Creatinine Clearance 0 mL/min (70-130); Calcium 6.6 mg/dL (7.8-10.44); Carbon Dioxide 29 mmol/L (22-29); Chloride 100 mmol/L (98-107); Estimated GFR-MDRD 90; Globulin 3.5 g/dL (2.4-3.5); Glucose 243 mg/dL (70-105); Lipase 67 U/L (8-78); Potassium 3.2 mmol/L (3.5-5.1); Protein, Total 7.1 g/dL (6.0-8.3); Sodium 137 mmol/L (136-145)
[2019-03-13 05:04] LABS: Bilirubin Negative (Negative); Blood, Urine Negative (Negative); Clarity Clear (Clear); Glucose, Urine (Dipstick) Greater than 1000 mg/dL (Negative); Leukocyte Negative Leu/uL (Negative); Nitrite Negative (Negative); Protein, Urine (Dipstick) Negative (Neg-Trace); Urobilinogen Normal mg/dL (Less than 2)
[2019-03-13] MEDS ORDERED: Magnesium Citrate 300 ML BOT ONE (05:37)
--- NOTE | 2019-03-13 08:02 | CT ---
PRELIMINARY REPORT/[facility]/EMERGENCY AFTER HOURS PROCEDURE: PROCEDURE INFORMATION: Exam: CT Abdomen and Pelvis With Contrast Exam date and time: 03/13/2019 4:22 AM Clinical history: 34 years old, female; Abdominal pain; Generalized; Prior surgery; Patient HX: 34 y/o F, S/P adhesiolysis, umbilical hernia repair, appendectomy, bilat breast biopsies x 3 days ago, presents to ED C/O constipation. PT reports that her last bm was prior to her procedure. She is still passing gas. TECHNIQUE: Imaging protocol: Computed tomography of the abdomen and pelvis with intravenous contrast. COMPARISON: No relevant prior studies available. FINDINGS: Liver: No acute findings. No mass. Gallbladder and bile ducts: No calcified stones. No ductal dilation. Pancreas: No acute findings. No mass. No ductal dilation. Spleen: No acute findings. No mass. Adrenals: No acute findings. No mass. Kidneys and ureters: No acute findings. No mass. No hydronephrosis. Stomach and bowel: Significant fecal loading. Marked air distended sigmoid colon segments. No evidence of bowel obstruction. Appendix: Appendectomy. Intraperitoneal space: Scattered pockets of free intraperitoneal air. Mild ascites. Vasculature: No acute findings. No abdominal aortic aneurysm. Lymph nodes: No significant lymphadenopathy. Bladder: Distended. No mass. Reproductive: Probable left ovarian cystic lesion measuring up to 5 cm. Bones/joints: No acute fracture. Soft tissues: Mild subcutaneous emphysema, likely postsurgical. IMPRESSION: Pneumoperitoneum is likely postsurgical. Probable left ovarian cystic lesion; recommend further evaluation with pelvic ultrasound. Significant fecal loading. Other findings above. Thank you for allowing us to participate in the care of your patient. Dictated and Authenticated by: Gary Watkins MD 03/13/2019 5:22 AM Central Time ([place] & [place]) FINAL REPORT: CT ABDOMEN AND PELVIS WITH IV CONTRAST: PROVIDED CLINICAL HISTORY: Pain. COMPARISON: 08/19/2018. FINDINGS/IMPRESSION: Agree with the preliminary interpretation given by SADE.. Transcribed Date/Time: 03/13/2019 8:11 AM
[2019-03-13] MEDS ORDERED: ISOVUE-370 76%-LOCM 1 ML ONE (12:46)
== END 2019-03-13 05:50 | disposition home or self-care (01) ==
LOC: ERS 03:02
DX: K59.00 Constipation, unspecified (principal); E10.9 Type 1 diabetes mellitus without complications
CPT/HCPCS: 74177; 80053; 81003; 83690; 84703; 85025; 96361; 96374; J2405; Q9966

== ENCOUNTER 2019-04-15 10:36 | Emergency (ER) | payer BC | END 2019-04-15 12:25 | disposition home or self-care (01) | LOC: ERS 10:36 | DX: K00.6 Disturbances in tooth eruption (principal); E10.9 Type 1 diabetes mellitus without complications | CPT/HCPCS: 99282 ==

== ENCOUNTER 2019-05-22 16:27 | Emergency (ER) | payer BC ==
[~2019-05-22 16:27] MED LIST changes: -ISOVUE-370 76%-LOCM 1 ML ONE; +Iopamidol 370 76% 50 ML VIAL FS ONE
[2019-05-22] MEDS ORDERED: Ketorolac Tromethamine 30 MG/ML VIAL ONE (17:40)
[2019-05-22] MEDS ORDERED: Morphine 4 MG/ML VIAL ONE (17:40)
[2019-05-22 17:47] LABS: #Basophils 0.1 thou/uL (0.0-0.2); #Eosinphils 0.1 thou/uL (0.0-0.7); #Lymphocytes 1.9 thou/uL (1.20-3.40); #Monocytes 0.5 thou/uL (0.11-0.59); #Neutrophils 5.9 thou/uL (1.40-6.50); %Basophils 0.6 % (0.0-1.0); %Eosinophils 1.2 % (0.0-10.0); %Lymphocytes 22.6 % (21.0-51.0); %Monocytes 6.3 % (0.0-10.0); %Neutrophils 69.3 % (42.0-75.0); Hemoglobin 12.3 g/dL (12.0-16.0); Mean Corpuscular HGB CONC 33.3 g/dL (32.0-36.0); Mean Corpuscular Volume 84.1 fL (78.0-98.0); Platelet Count 193 thou/uL (130-400); RBC Distribution Width 11.8 % (11.5-14.5); White Blood Cell (WBC) Count 8.5 thou/uL (4.8-10.8)
[2019-05-22 18:09] LABS: ALT (SGPT) 15 U/L (8-55); AST (SGOT) 16 U/L (5-34); Albumin 3.5 g/dL (3.5-5.0); Alkaline Phosphatase 60 U/L (40-110); Anion Gap 13 mmol/L (10-20); BUN (Urea Nitrogen) 11 mg/dL (7.0-18.7); Bilirubin, Total 0.6 mg/dL (0.2-1.2); Calc. Creatinine Clearance 0 mL/min (70-130); Calcium 7.3 mg/dL (7.8-10.44); Carbon Dioxide 25 mmol/L (22-29); Chloride 103 mmol/L (98-107); Estimated GFR-MDRD 84; Globulin 3.4 g/dL (2.4-3.5); Glucose 213 mg/dL (70-105); Potassium 4.4 mmol/L (3.5-5.1); Protein, Total 6.9 g/dL (6.0-8.3); Sodium 137 mmol/L (136-145)
[2019-05-22 18:22] LABS: BHCG - Serum Negative (NEGATIVE); Pregs Control Background? CLEAR/WHITE (CLR/WHITE); Pregs Control Bar Appear? YES (CONTROL BAR)
[2019-05-22] MEDS ORDERED: Meclizine HCl 25 MG TAB ONE (19:04)
[2019-05-22 19:26] LABS: Bilirubin Negative (Negative); Clarity Clear (Clear); Glucose, Urine (Dipstick) Greater than 1000 mg/dL (Negative); Leukocyte 500 Leu/uL (Negative); Nitrite Negative (Negative); Protein, Urine (Dipstick) 30 mg/dL (Neg-Trace); Urobilinogen 3 mg/dL (Less than 2)
[2019-05-22 19:32] LABS: Bacteria/HPF 1+ HPF (None Seen); Blood, Urine Trace (Negative); RBC/HPF 0-3 HPF (0-3)
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
== END 2019-05-22 21:30 | disposition home or self-care (01) ==
LOC: ERS 16:27
DX: I65.22 Occlusion and stenosis of left carotid artery (principal); N39.0 Urinary tract infection, site not specified; E10.9 Type 1 diabetes mellitus without complications; Z79.891 Long term (current) use of opiate analgesic
CPT/HCPCS: 36415; 70496; 70498; 74177; 80053; 81003; 81015; 84484; 84703; 85025; 96374; 96375; J1885; J2270; J8597; Q9967

== ENCOUNTER 2019-12-07 10:41 | Emergency (ER) | payer BC ==
[~2019-12-07 10:41] MED LIST changes: -Iopamidol 370 76% 50 ML VIAL FS ONE; +Iopamidol-370 76% 500 ML 1 ML ONE
--- NOTE | 2019-12-07 11:03 | RAD ---
EXAM: Chest 2 views: HISTORY: Left chest pain COMPARISON: 05/26/2017 FINDINGS: There is a normal-sized cardiomediastinal silhouette. There is no evidence of consolidation, mass, or pleural effusion. The bones are unremarkable. IMPRESSION: No evidence of acute cardiopulmonary disease
[2019-12-07 11:19] LABS: #Eosinphils 0.1 thou/uL (0.0-0.7); #Lymphocytes 0.8 thou/uL (1.20-3.40); #Monocytes 0.4 thou/uL (0.11-0.59); #Neutrophils 2.7 thou/uL (1.40-6.50); %Basophils 0.1 % (0.0-1.0); %Eosinophils 1.9 % (0.0-10.0); %Lymphocytes 19.9 % (21.0-51.0); %Monocytes 9.5 % (0.0-10.0); %Neutrophils 68.7 % (42.0-75.0); Hemoglobin 13.8 g/dL (12.0-16.0); Mean Corpuscular HGB CONC 33.5 g/dL (32.0-36.0); Mean Corpuscular Hemoglobin 28.2 pg (27.0-31.0); Mean Corpuscular Volume 84.2 fL (78.0-98.0); Mean Platelet Volume 9.6 fL (7.4-10.4); Platelet Count 171 thou/uL (130-400); RBC Distribution Width 11.3 % (11.5-14.5); Red Blood Cell (RBC) Count 4.89 mill/uL (4.20-5.40); White Blood Cell (WBC) Count 3.9 thou/uL (4.8-10.8)
[2019-12-07 11:48] LABS: ALT (SGPT) Less than 7 U/L (8-55); AST (SGOT) 9 U/L (5-34); Albumin 3.6 g/dL (3.5-5.0); Alkaline Phosphatase 73 U/L (40-110); Anion Gap 10 mmol/L (10-20); BUN (Urea Nitrogen) 6 mg/dL (7.0-18.7); Bilirubin, Total 0.4 mg/dL (0.2-1.2); Calc. Creatinine Clearance 0 mL/min (70-130); Carbon Dioxide 28 mmol/L (22-29); Chloride 100 mmol/L (98-107); Estimated GFR-MDRD 82; Globulin 3.8 g/dL (2.4-3.5); Glucose 389 mg/dL (70-105); Protein, Total 7.4 g/dL (6.0-8.3); Sodium 134 mmol/L (136-145)
[2019-12-07 12:07] LABS: BHCG - Serum Negative (NEGATIVE); Pregs Control Background? CLEAR/WHITE (CLR/WHITE); Pregs Control Bar Appear? YES (CONTROL BAR)
[2019-12-07 12:37] LABS: CK (CPK) 134 U/L (29-168); Lipase 40 U/L (8-78)
[2019-12-07] MEDS ORDERED: Ketorolac Tromethamine 30 MG/ML VIAL ONE (12:57)
--- NOTE | 2019-12-07 13:28 | CT ---
CT PULMONARY ANGIOGRAM WITH IV CONTRAST AND 3-D POSTPROCESSING: HISTORY:Left chest pain, elevated d-dimer FINDINGS: There is good contrast opacification of the pulmonary arterial vasculature without filling defects to suggest pulmonary embolism. The thoracic aorta is well opacified without aneurysm or dissection. No pleural or pericardial effusions are seen. No pneumothoraces, focal areas of consolidation or lung nodules are noted. There is chronic compression of T9 vertebral body and old posttraumatic right rib deformity. Upper abdominal tomograms demonstrate no significant abnormalities.. IMPRESSION: No CT evidence of pulmonary embolism.
--- NOTE | 2019-12-11 14:52 | EKG ---
Test Reason : Blood Pressure : / mmHG Vent. Rate : 100 BPM Atrial Rate : 100 BPM P-R Int : 126 ms QRS Dur : 070 ms QT Int : 376 ms P-R-T Axes : 068 039 035 degrees QTc Int : 485 ms Normal sinus rhythm Prolonged QT Abnormal ECG Confirmed by NAVEEN CHANDLER MD ([id number]), senior technical editor SIDDHARTH GOMEZ ([id number]) on 12/11/2019 2:51:45 PM Referred By: Confirmed By:NAVEEN CHANDLER MD
== END 2019-12-07 13:58 | disposition home or self-care (01) ==
LOC: ERS 10:41
DX: R09.1 Pleurisy (principal); E10.9 Type 1 diabetes mellitus without complications; Z79.899 Other long term (current) drug therapy; Z79.82 Long term (current) use of aspirin
CPT/HCPCS: 36415; 71046; 71275; 80053; 82010; 82550; 83690; 84484; 84703; 85025; 85379; 93005; 96374; J1885; Q9967

== ENCOUNTER 2019-12-30 07:21 | Emergency (ER) | payer BC ==
[2019-12-30] MEDS ORDERED: Ketorolac Tromethamine 30 MG/ML VIAL ONE (08:19)
[2019-12-30] MEDS ORDERED: Dexamethasone 4 MG TAB ONE (08:19)
== END 2019-12-30 08:59 | disposition home or self-care (01) ==
LOC: ERS 07:21
DX: M54.16 Radiculopathy, lumbar region (principal); E10.65 Type 1 diabetes mellitus with hyperglycemia
CPT/HCPCS: 36416; 96372; 99283; J1885; J8540

== ENCOUNTER 2020-01-10 17:50 | Emergency (ER) | payer BC | END 2020-01-10 18:37 | disposition home or self-care (01) | LOC: ERS 17:50 | DX: K04.7 Periapical abscess without sinus (principal); E10.9 Type 1 diabetes mellitus without complications | CPT/HCPCS: 99282 ==

== ENCOUNTER 2020-09-15 08:42 | Inpatient (IN) | payer BC ==
[2020-09-15 09:24] LABS: #Basophils 0.1 thou/uL (0.0-0.2); #Monocytes 0.3 thou/uL (0.11-0.59); #Neutrophils 5.4 thou/uL (1.40-6.50); %Basophils 0.8 % (0.0-1.0); %Eosinophils 0.2 % (0.0-10.0); %Lymphocytes 15.2 % (21.0-51.0); %Monocytes 4.7 % (0.0-10.0); %Neutrophils 79.2 % (42.0-75.0); Hemoglobin 14.5 g/dL (12.0-16.0); Mean Corpuscular HGB CONC 32.9 g/dL (32.0-36.0); Mean Corpuscular Hemoglobin 27.8 pg (27.0-31.0); Mean Corpuscular Volume 84.6 fL (78.0-98.0); Mean Platelet Volume 9.2 fL (7.4-10.4); Platelet Count 271 thou/uL (130-400); RBC Distribution Width 12.2 % (11.5-14.5); Red Blood Cell (RBC) Count 5.22 mill/uL (4.20-5.40); White Blood Cell (WBC) Count 6.8 thou/uL (4.8-10.8)
[2020-09-15 09:30] LABS: Actual Bicarbonate (HCO3v) 28 mEq/L (22-28); BHCG - Serum Negative (NEGATIVE); Base Excess 2.8 mEq/L (-2.0 to +3.0); Calcium, Ionized (venous) 0.86 mmol/L (1.16-1.32); Chloride (VBG) 91 mmol/L (98-106); Hemoglobin (Hb) 15.4 g/dL (11.7-15.5); Potassium (VBG) 3.15 mmol/L (3.70-5.30); Pregs Control Background? CLEAR/WHITE (CLR/WHITE); Pregs Control Bar Appear? YES (CONTROL BAR); Sodium 132.2 mmol/L (133-146); pH (venous) 7.42 (7.32-7.43)
[2020-09-15 09:35] LABS: Anion Gap 18 mmol/L (10-20); BUN (Urea Nitrogen) 4 mg/dL (7.0-18.7); Calc. Creatinine Clearance 0 mL/min (70-130); Carbon Dioxide 27 mmol/L (22-29); Chloride 91 mmol/L (98-107); Potassium 3.1 mmol/L (3.5-5.1); Sodium 133 mmol/L (136-145)
[2020-09-15 09:36] LABS: ALT (SGPT) Less than 7 U/L (8-55); AST (SGOT) 10 U/L (5-34); Albumin 3.6 g/dL (3.5-5.0); Alkaline Phosphatase 90 U/L (40-110); Bilirubin, Total 0.3 mg/dL (0.2-1.2); Calcium 7.8 mg/dL (7.8-10.44); Globulin 3.7 g/dL (2.4-3.5); Protein, Total 7.3 g/dL (6.0-8.3)
[2020-09-15 09:40] LABS: Glucose 709 mg/dL (70-105)
[2020-09-15] MEDS ORDERED: NS 0.9% w/ 40 MEQ KCL 1,000 ML IV SCH (11:15)
[2020-09-15] MEDS ORDERED: INSULIN REGULAR IN 0.9 % NACL 100 UNIT in Premix Bag 1 BAG IVPB SCH (11:15)
[2020-09-15] MEDS ORDERED: Potassium Chloride 20 MEQ TAB PO SCH (11:15)
[2020-09-15] MEDS ORDERED: Potassium Chloride 20 MEQ TAB ONE (11:21)
[2020-09-15] MEDS ORDERED: Magnesium 2 GM/50 ML BAG (IN WATER) ONE (11:27)
[2020-09-15] MEDS ORDERED: Insulin Regular 300 UNITS/3 ML VIAL ONE (11:27)
[2020-09-15] MEDS ORDERED: Ondansetron PF 4 MG/2 ML Vial IVP PRN (11:27)
[2020-09-15] MEDS ORDERED: Senokot S 8.6-50 MG TAB PO PRN (11:27)
[2020-09-15] MEDS ORDERED: Dextrose 5% in Water 1,000 ML IV PRN (11:36)
[2020-09-15] MEDS ORDERED: Dextrose 50% Abboject 50 ML SYRINGE SLOW IVP PRN (11:36)
[2020-09-15] MEDS ORDERED: Lantus 1000 UNITS/10 ML VIAL SC SCH ×2 (11:45→21:00)
[2020-09-15 11:54] LABS: Hemoglobin A1c Greater than 14.0 % (4.0-6.0)
[2020-09-15 12:02] LABS: Cardiac Risk 2.8 (Less than 4.5)
[2020-09-15 13:35] VITALS: BMI 18.6
[2020-09-15 13:49] LABS: SARS-CoV-2 NAA Rapid Test Not Detected (NotDetected)
[2020-09-15] MEDS: Sodium Chloride 0.9% 1,000 ML IV SCH ×2 (14:11→20:00)
[2020-09-15] MEDS ORDERED: Electrolyte Replacement Protocol 1 EACH FS ONE (15:47)
[2020-09-15] MEDS ORDERED: Potassium Chloride 10 MEQ in Premix Bag 1 BAG IVPB SCH (16:00)
[2020-09-15] MEDS ORDERED: Electrolyte Replacement Protocol FS PRN (16:00)
[2020-09-15] MEDS: Famotidine 20 MG TAB PO SCH (20:00)
[2020-09-15] MEDS: Lantus 1000 UNITS/10 ML VIAL SC SCH (20:00)
[2020-09-16] MEDS: Acetaminophen 325 MG TAB PO PRN (02:03)
[2020-09-16 03:40] LABS: #Basophils 0.1 thou/uL (0.0-0.2); #Eosinphils 0.1 thou/uL (0.0-0.7); #Lymphocytes 2.5 thou/uL (1.20-3.40); #Monocytes 0.6 thou/uL (0.11-0.59); #Neutrophils 5.2 thou/uL (1.40-6.50); %Basophils 0.6 % (0.0-1.0); %Eosinophils 1.1 % (0.0-10.0); %Lymphocytes 29.3 % (21.0-51.0); %Monocytes 7.1 % (0.0-10.0); %Neutrophils 61.9 % (42.0-75.0); Hemoglobin 12.1 g/dL (12.0-16.0); Mean Corpuscular HGB CONC 34.1 g/dL (32.0-36.0); Mean Corpuscular Hemoglobin 28.8 pg (27.0-31.0); Mean Corpuscular Volume 84.3 fL (78.0-98.0); Mean Platelet Volume 8.9 fL (7.4-10.4); Platelet Count 225 thou/uL (130-400); RBC Distribution Width 12.2 % (11.5-14.5); White Blood Cell (WBC) Count 8.4 thou/uL (4.8-10.8)
[2020-09-16 04:09] LABS: ALT (SGPT) Less than 7 U/L (8-55); AST (SGOT) 10 U/L (5-34); Albumin 2.9 g/dL (3.5-5.0); Alkaline Phosphatase 69 U/L (40-110); Anion Gap 13 mmol/L (10-20); BUN (Urea Nitrogen) Less than 4 mg/dL (7.0-18.7); Bilirubin, Total 0.2 mg/dL (0.2-1.2); Calc. Creatinine Clearance 88 mL/min (70-130); Calcium 6.1 mg/dL (7.8-10.44); Carbon Dioxide 26 mmol/L (22-29); Chloride 102 mmol/L (98-107); Globulin 3.2 g/dL (2.4-3.5); Glucose 331 mg/dL (70-105); Potassium 3.1 mmol/L (3.5-5.1); Protein, Total 6.1 g/dL (6.0-8.3); Sodium 138 mmol/L (136-145)
[2020-09-16] MEDS: HumaLOG 300 UNITS/3 ML VIAL SC PRN ×3 (06:08→18:13)
[2020-09-16] MEDS: Sodium Chloride 0.9% 1,000 ML IV SCH ×3 (06:08→20:40)
[2020-09-16] MEDS ORDERED: Potassium Chloride 40 MEQ in Sodium Chloride 0.9% 250 ML 250 ML IVPB SCH (06:30)
[2020-09-16] MEDS: Lantus 1000 UNITS/10 ML VIAL SC SCH ×2 (08:36→21:18)
[2020-09-16] MEDS: Famotidine 20 MG TAB PO SCH ×2 (08:37→20:40)
[2020-09-16] MEDS ORDERED: hydrALAZINE 20 MG/ML VIAL ONE (20:37)
[2020-09-16] MEDS: hydrALAZINE 20 MG/ML VIAL SLOW IVP PRN (21:18)
[2020-09-17] MEDS: hydrALAZINE 20 MG/ML VIAL SLOW IVP PRN (05:06)
[2020-09-17] MEDS: Sodium Chloride 0.9% 1,000 ML IV SCH ×3 (05:06→20:31)
[2020-09-17] MEDS: HumaLOG 300 UNITS/3 ML VIAL SC PRN (05:09)
[2020-09-17] MEDS: Lantus 1000 UNITS/10 ML VIAL SC SCH ×2 (08:47→20:40)
[2020-09-17] MEDS: Lisinopril 5 MG TAB PO SCH (08:48)
[2020-09-17] MEDS: Famotidine 20 MG TAB PO SCH ×2 (08:48→20:31)
[2020-09-17] MEDS: Acetaminophen 325 MG TAB PO PRN (10:42)
[2020-09-17] MEDS: cloNIDine 0.1 MG TAB PO PRN ×2 (15:28→23:33)
[2020-09-18] MEDS: Sodium Chloride 0.9% 1,000 ML IV SCH (02:29)
[2020-09-18] MEDS: hydrALAZINE 20 MG/ML VIAL SLOW IVP PRN (02:29)
[2020-09-18] MEDS: HumaLOG 300 UNITS/3 ML VIAL SC PRN ×2 (06:16→11:25)
[2020-09-18] MEDS: Famotidine 20 MG TAB PO SCH (09:11)
[2020-09-18] MEDS: Lisinopril 5 MG TAB PO SCH (09:12)
[2020-09-18] MEDS: Lantus 1000 UNITS/10 ML VIAL SC SCH (09:12)
[2020-09-18 16:01] VITALS: BP 148/92; TEMP 98.7
[2020-09-18 16:20] LABS: BHCG - Serum Negative (NEGATIVE); Pregs Control Background? CLEAR/WHITE (CLR/WHITE); Pregs Control Bar Appear? YES (CONTROL BAR)
[2020-09-19] MEDS ORDERED: Lisinopril 10 MG TAB PO SCH (09:00)
== END 2020-09-18 18:45 | DRG 638 ==
LOC: ERS 08:42 → IMCU/EMU 11:27 → T4-A 09-18 15:37
PROVIDERS: ADMIT Student in an Organized Health Care Education/Training Program; ATTEND Internal Medicine
DX: E10.10 Type 1 diabetes mellitus with ketoacidosis without coma (principal); E44.1 Mild protein-calorie malnutrition; Z68.1 Body mass index [BMI] 19.9 or less, adult; F41.9 Anxiety disorder, unspecified; I10 Essential (primary) hypertension; Z20.822 Contact with and (suspected) exposure to COVID-19; Z91.19 Patient's noncompliance with other medical treatment and regimen; Z79.4 Long term (current) use of insulin; Z90.710 Acquired absence of both cervix and uterus; Z83.3 Family history of diabetes mellitus
CPT/HCPCS: 0240U; 36415; 36416; 80053; 80061; 82010; 82805; 83036; 84703; 85025; 93005; 96365; 96368; J0360; J1815; J3475; J3480; J7050

== ENCOUNTER 2020-11-07 17:34 | Emergency (ER) | payer BC | END 2020-11-07 18:08 | disposition home or self-care (01) | LOC: ERS 17:34 | DX: M54.5 Low back pain (principal); E10.9 Type 1 diabetes mellitus without complications | CPT/HCPCS: 99281 ==

== ENCOUNTER 2020-12-14 10:23 | Inpatient (IN) | payer BC, SELFPAY ==
[2020-12-14 10:59] LABS: #Lymphocytes 0.8 thou/uL (1.20-3.40); #Monocytes 0.4 thou/uL (0.11-0.59); #Neutrophils 8.3 thou/uL (1.40-6.50); %Basophils 0.4 % (0.0-1.0); %Eosinophils 0.3 % (0.0-10.0); %Lymphocytes 8.7 % (21.0-51.0); %Monocytes 4.4 % (0.0-10.0); %Neutrophils 86.2 % (42.0-75.0); Hemoglobin 14.5 g/dL (12.0-16.0); Mean Corpuscular Hemoglobin 27.5 pg (27.0-31.0); Mean Platelet Volume 10.4 fL (7.4-10.4); Platelet Count 280 thou/uL (130-400); RBC Distribution Width 11.8 % (11.5-14.5); Red Blood Cell (RBC) Count 5.28 mill/uL (4.20-5.40); White Blood Cell (WBC) Count 9.6 thou/uL (4.8-10.8)
[2020-12-14 11:25] LABS: BHCG - Serum Negative (NEGATIVE); Pregs Control Background? CLEAR/WHITE (CLR/WHITE); Pregs Control Bar Appear? YES (CONTROL BAR)
[2020-12-14 11:26] LABS: ALT (SGPT) Less than 7 U/L (8-55); AST (SGOT) 7 U/L (5-34); Alkaline Phosphatase 124 U/L (40-110); Anion Gap 19 mmol/L (10-20); BUN (Urea Nitrogen) 17 mg/dL (7.0-18.7); Bilirubin, Total 0.6 mg/dL (0.2-1.2); Calc. Creatinine Clearance 0 mL/min (70-130); Calcium 8.7 mg/dL (7.8-10.44); Carbon Dioxide 34 mmol/L (22-29); Chloride 89 mmol/L (98-107); Globulin 4.9 g/dL (2.4-3.5); Magnesium 2.6 mg/dL (1.6-2.6); Phosphorus 5.3 mg/dL (2.3-4.7); Potassium 4.3 mmol/L (3.5-5.1); Protein, Total 8.9 g/dL (6.0-8.3); Sodium 138 mmol/L (136-145)
[2020-12-14] MEDS ORDERED: Nystatin 500,000 UNITS/5 ML UDCUP PO SCH (11:45)
[2020-12-14 11:46] LABS: Glucose 738 mg/dL (70-105)
[2020-12-14 11:47] LABS: Bilirubin Negative (Negative); Blood, Urine 3+ (Negative); Clarity Clear (Clear); Glucose, Urine (Dipstick) Greater than 1000 mg/dL (Negative); Ketone, Urine Negative (Negative); Leukocyte 250 Leu/uL (Negative); Nitrite Negative (Negative); Protein, Urine (Dipstick) 10 mg/dL (Neg-Trace); RBC/HPF 0-3 HPF (0-3); Specific Gravity, Urine 1.032 (1.002-1.036); Urobilinogen Normal mg/dL (Less than 2)
[2020-12-14 11:48] LABS: Bacteria/HPF Rare-Few HPF (None Seen)
[2020-12-14 11:50] LABS: Base Excess 11.6 mEq/L (-2.0 to +3.0); Calcium, Ionized (venous) 0.94 mmol/L (1.16-1.32); Chloride (VBG) 91 mmol/L (98-106); Hemoglobin (Hb) 14.4 g/dL (11.7-15.5); Potassium (VBG) 4.16 mmol/L (3.70-5.30); Sodium 138.7 mmol/L (133-146); pH (venous) 7.42 (7.32-7.43)
[2020-12-14 11:52] LABS: Actual Bicarbonate (HCO3v) 39 mEq/L (22-28)
[2020-12-14] MEDS ORDERED: Insulin Regular 300 UNITS/3 ML VIAL ONE (12:54)
[2020-12-14] MEDS ORDERED: Lantus 1000 UNITS/10 ML VIAL SC SCH (15:45)
[2020-12-14] MEDS ORDERED: Lisinopril 10 MG TAB PO SCH (15:45)
[2020-12-14] MEDS: Nystatin 500,000 UNITS/5 ML UDCUP SSW SCH ×3 (17:23→20:02)
[2020-12-14] MEDS ORDERED: Sodium Chloride 0.9% 1,000 ML IV SCH (18:30)
[2020-12-14] MEDS ORDERED: Insulin Regular 100 units/100 ml in NS IVPB SCH (18:45)
[2020-12-14] MEDS ORDERED: Dextrose 5% in Water 1,000 ML IV PRN (19:15)
[2020-12-14] MEDS ORDERED: Dextrose 50% Abboject 50 ML SYRINGE SLOW IVP PRN (19:15)
[2020-12-14] MEDS: Senokot S 8.6-50 MG TAB PO SCH (20:02)
[2020-12-14] MEDS: Sodium Chloride 0.9% 1,000 ML IV SCH (20:02)
[2020-12-14] MEDS: Acetaminophen 325 MG TAB PO PRN (22:39)
[2020-12-15] MEDS: Sodium Chloride 0.9% 1,000 ML IV SCH ×2 (03:53→15:32)
[2020-12-15] MEDS: HumaLOG 300 UNITS/3 ML VIAL SC PRN ×3 (06:10→20:42)
[2020-12-15] MEDS: Nystatin 500,000 UNITS/5 ML UDCUP SSW SCH ×4 (08:34→20:34)
[2020-12-15] MEDS: Senokot S 8.6-50 MG TAB PO SCH ×2 (08:34→20:33)
[2020-12-15 10:48] LABS: Anion Gap 11 mmol/L (10-20); BUN (Urea Nitrogen) 13 mg/dL (7.0-18.7); Calc. Creatinine Clearance 73 mL/min (70-130); Carbon Dioxide 32 mmol/L (22-29); Chloride 105 mmol/L (98-107); Potassium 4.1 mmol/L (3.5-5.1); Sodium 144 mmol/L (136-145)
[2020-12-15 10:49] LABS: Calcium 6.9 mg/dL (7.8-10.44); Glucose 181 mg/dL (70-105)
[2020-12-15] MEDS: Acetaminophen 325 MG TAB PO PRN (10:56)
[2020-12-15 11:09] LABS: SARS-CoV-2 PCR by NAA Not Detected (NotDetected)
[2020-12-15] MEDS ORDERED: Iopamidol 370 76% 100 ML VIAL ONE (11:12)
[2020-12-15 11:19] VITALS: BMI 19.5
[2020-12-15] MEDS: Ketorolac Tromethamine 30 MG/ML VIAL IVP SCH ×2 (14:22→18:18)
[2020-12-15] MEDS ORDERED: Calcium Gluconate 100 MG/ML 10 ML IVPB SCH (15:30)
[2020-12-15] MEDS: cefTRIAXone\\ROCEPHIN 1 GM in Sodium Chloride 0.9% 100 ML IVPB SCH (15:36)
[2020-12-15] MEDS: Fluconazole In NaCl,Iso-Osm 200 MG in Premix Bag 1 BAG IVPB SCH (16:23)
[2020-12-15] MEDS ORDERED: Calcium Gluconate 9.2 MEQ in Sodium Chloride 0.9% 100 ML IVPB SCH (16:30)
[2020-12-16] MEDS: Ketorolac Tromethamine 30 MG/ML VIAL IVP SCH ×2 (01:19→07:44)
[2020-12-16] MEDS: Sodium Chloride 0.9% 1,000 ML IV SCH ×3 (01:31→20:07)
[2020-12-16 06:13] LABS: #Basophils 0.1 thou/uL (0.0-0.2); #Eosinphils 0.2 thou/uL (0.0-0.7); #Lymphocytes 1.9 thou/uL (1.20-3.40); #Monocytes 0.4 thou/uL (0.11-0.59); #Neutrophils 2.5 thou/uL (1.40-6.50); %Basophils 1.1 % (0.0-1.0); %Eosinophils 3.3 % (0.0-10.0); %Neutrophils 50.5 % (42.0-75.0); Hemoglobin 11.5 g/dL (12.0-16.0); Mean Corpuscular HGB CONC 32.6 g/dL (32.0-36.0); Mean Corpuscular Hemoglobin 28.2 pg (27.0-31.0); Mean Corpuscular Volume 86.6 fL (78.0-98.0); Mean Platelet Volume 9.6 fL (7.4-10.4); Platelet Count 181 thou/uL (130-400); RBC Distribution Width 11.4 % (11.5-14.5); Red Blood Cell (RBC) Count 4.09 mill/uL (4.20-5.40)
[2020-12-16] MEDS: Senokot S 8.6-50 MG TAB PO SCH ×2 (08:19→20:07)
[2020-12-16] MEDS: Nystatin 500,000 UNITS/5 ML UDCUP SSW SCH ×4 (08:19→20:07)
[2020-12-16 10:07] LABS: ALT (SGPT) Less than 7 U/L (8-55); AST (SGOT) 13 U/L (5-34); Albumin 2.7 g/dL (3.5-5.0); Alkaline Phosphatase 70 U/L (40-110); Anion Gap 13 mmol/L (10-20); BUN (Urea Nitrogen) 9 mg/dL (7.0-18.7); Bilirubin, Total 0.3 mg/dL (0.2-1.2); Calc. Creatinine Clearance 86 mL/min (70-130); Calcium 6.9 mg/dL (7.8-10.44); Carbon Dioxide 27 mmol/L (22-29); Chloride 106 mmol/L (98-107); Globulin 3.1 g/dL (2.4-3.5); Glucose 219 mg/dL (70-105); Potassium 3.5 mmol/L (3.5-5.1); Protein, Total 5.8 g/dL (6.0-8.3); Sodium 141 mmol/L (136-145)
[2020-12-16] MEDS: HumaLOG 300 UNITS/3 ML VIAL SC PRN ×2 (12:12→17:13)
[2020-12-16] MEDS: Fluconazole In NaCl,Iso-Osm 200 MG in Premix Bag 1 BAG IVPB SCH (14:07)
[2020-12-16] MEDS: Acetaminophen 325 MG TAB PO PRN ×2 (14:11→21:09)
[2020-12-16] MEDS: cefTRIAXone\\ROCEPHIN 1 GM in Sodium Chloride 0.9% 100 ML IVPB SCH (16:18)
[2020-12-16] MEDS: Ketorolac Tromethamine 30 MG/ML VIAL IVP PRN ×2 (16:51→22:25)
[2020-12-16] MEDS ORDERED: HumaLOG 300 UNITS/3 ML VIAL SC PRN (20:21)
[2020-12-17] MEDS: Acetaminophen 325 MG TAB PO PRN ×3 (03:01→22:03)
[2020-12-17] MEDS: Sodium Chloride 0.9% 1,000 ML IV SCH ×3 (04:46→23:12)
[2020-12-17] MEDS: HumaLOG 300 UNITS/3 ML VIAL SC PRN ×3 (04:47→16:49)
[2020-12-17] MEDS: Ketorolac Tromethamine 30 MG/ML VIAL IVP PRN ×4 (04:47→23:11)
[2020-12-17 05:25] LABS: #Eosinphils 0.1 thou/uL (0.0-0.7); #Lymphocytes 1.5 thou/uL (1.20-3.40); #Monocytes 0.4 thou/uL (0.11-0.59); #Neutrophils 5.7 thou/uL (1.40-6.50); %Basophils 0.6 % (0.0-1.0); %Eosinophils 1.4 % (0.0-10.0); %Monocytes 5.5 % (0.0-10.0); %Neutrophils 73.5 % (42.0-75.0); Hemoglobin 11.5 g/dL (12.0-16.0); Mean Corpuscular HGB CONC 32.8 g/dL (32.0-36.0); Mean Corpuscular Hemoglobin 27.7 pg (27.0-31.0); Mean Corpuscular Volume 84.6 fL (78.0-98.0); Mean Platelet Volume 9.4 fL (7.4-10.4); Platelet Count 173 thou/uL (130-400); Red Blood Cell (RBC) Count 4.14 mill/uL (4.20-5.40); White Blood Cell (WBC) Count 7.8 thou/uL (4.8-10.8)
[2020-12-17 05:35] LABS: Hemoglobin A1c Greater than 14.0 % (4.0-6.0)
[2020-12-17 05:44] LABS: Anion Gap 16 mmol/L (10-20); BUN (Urea Nitrogen) 5 mg/dL (7.0-18.7); Calc. Creatinine Clearance 86 mL/min (70-130); Calcium 6.1 mg/dL (7.8-10.44); Carbon Dioxide 23 mmol/L (22-29); Chloride 102 mmol/L (98-107); Glucose 394 mg/dL (70-105); Potassium 3.6 mmol/L (3.5-5.1); Sodium 137 mmol/L (136-145)
[2020-12-17 06:09] LABS: HIV (1/2) Antibody/Antigen Non-Reactive (NonReactive); HIV 1/2 INDEX 0.11 S/CO (<1.00)
[2020-12-17] MEDS: Senokot S 8.6-50 MG TAB PO SCH ×2 (09:32→20:55)
[2020-12-17] MEDS: Nystatin 500,000 UNITS/5 ML UDCUP SSW SCH ×4 (09:32→20:56)
[2020-12-17] MEDS: Fluconazole In NaCl,Iso-Osm 200 MG in Premix Bag 1 BAG IVPB SCH (14:00)
[2020-12-17] MEDS: Lantus 1000 UNITS/10 ML VIAL SC SCH (20:55)
[2020-12-18] MEDS: HumaLOG 300 UNITS/3 ML VIAL SC PRN (04:56)
[2020-12-18] MEDS: Ketorolac Tromethamine 30 MG/ML VIAL IVP PRN ×2 (04:58→10:59)
[2020-12-18 06:37] LABS: #Eosinphils 0.1 thou/uL (0.0-0.7); #Lymphocytes 1.7 thou/uL (1.20-3.40); #Monocytes 0.4 thou/uL (0.11-0.59); #Neutrophils 3.8 thou/uL (1.40-6.50); %Basophils 0.7 % (0.0-1.0); %Eosinophils 2.4 % (0.0-10.0); %Lymphocytes 27.6 % (21.0-51.0); %Monocytes 7.2 % (0.0-10.0); %Neutrophils 62.1 % (42.0-75.0); Hemoglobin 12.4 g/dL (12.0-16.0); Mean Corpuscular HGB CONC 32.3 g/dL (32.0-36.0); Mean Corpuscular Volume 83.8 fL (78.0-98.0); Mean Platelet Volume 9.3 fL (7.4-10.4); Platelet Count 196 thou/uL (130-400); RBC Distribution Width 11.3 % (11.5-14.5); Red Blood Cell (RBC) Count 4.59 mill/uL (4.20-5.40); White Blood Cell (WBC) Count 6.1 thou/uL (4.8-10.8)
[2020-12-18 06:59] LABS: Anion Gap 14 mmol/L (10-20); BUN (Urea Nitrogen) Less than 4 mg/dL (7.0-18.7); Calc. Creatinine Clearance 94 mL/min (70-130); Calcium 6.2 mg/dL (7.8-10.44); Carbon Dioxide 28 mmol/L (22-29); Chloride 103 mmol/L (98-107); Glucose 141 mg/dL (70-105); Potassium 3.5 mmol/L (3.5-5.1); Sodium 141 mmol/L (136-145)
[2020-12-18 08:10] VITALS: BP 128/86; TEMP 98.3
[2020-12-18] MEDS: Acetaminophen 325 MG TAB PO PRN (08:24)
[2020-12-18] MEDS: Nystatin 500,000 UNITS/5 ML UDCUP SSW SCH (08:24)
[2020-12-18] MEDS: Lantus 1000 UNITS/10 ML VIAL SC SCH (08:26)
[2020-12-18] MEDS: Senokot S 8.6-50 MG TAB PO SCH (08:34)
[2020-12-18] MEDS ORDERED: Calcium Gluconate 4.6 MEQ in Sodium Chloride 0.9% 100 ML IVPB SCH (10:00)
== END 2020-12-18 12:00 | disposition home or self-care (01) | DRG 638 ==
LOC: ERS 10:23 → IMCU/EMU 14:52 → T4-B 12-15 13:00
PROVIDERS: ADMIT Internal Medicine; ATTEND Internal Medicine
DX: E10.65 Type 1 diabetes mellitus with hyperglycemia (principal); N17.9 Acute kidney failure, unspecified; B37.0 Candidal stomatitis; R59.0 Localized enlarged lymph nodes; J39.2 Other diseases of pharynx; E86.0 Dehydration; E07.89 Other specified disorders of thyroid; E83.51 Hypocalcemia; I10 Essential (primary) hypertension; Z20.822 Contact with and (suspected) exposure to COVID-19; Z98.890 Other specified postprocedural states; Z90.49 Acquired absence of other specified parts of digestive tract; Z88.8 Allergy status to other drugs, medicaments and biological substances
CPT/HCPCS: 36415; 36416; 70491; 76536; 80048; 80053; 81003; 81015; 82010; 82805; 83036; 83735; 84100; 84703; 85025; 87389; 93005; 96374; J0696; J1450; J1815; J1885; J2001; J3490; Q9967; U0003; U0005

== ENCOUNTER 2020-12-27 16:07 | Emergency (ER) | payer BC ==
[2020-12-27 16:47] LABS: #Eosinphils 0.1 thou/uL (0.0-0.7); #Lymphocytes 2.8 thou/uL (1.20-3.40); #Monocytes 0.5 thou/uL (0.11-0.59); #Neutrophils 7.1 thou/uL (1.40-6.50); %Basophils 0.3 % (0.0-1.0); %Eosinophils 0.9 % (0.0-10.0); %Lymphocytes 26.1 % (21.0-51.0); %Monocytes 4.9 % (0.0-10.0); %Neutrophils 67.8 % (42.0-75.0); Hemoglobin 13.4 g/dL (12.0-16.0); Mean Corpuscular HGB CONC 35.3 g/dL (32.0-36.0); Mean Corpuscular Hemoglobin 29.6 pg (27.0-31.0); Mean Corpuscular Volume 83.9 fL (78.0-98.0); Mean Platelet Volume 8.4 fL (7.4-10.4); Platelet Count 365 thou/uL (130-400); Red Blood Cell (RBC) Count 4.53 mill/uL (4.20-5.40); White Blood Cell (WBC) Count 10.5 thou/uL (4.8-10.8)
[2020-12-27 17:08] LABS: ALT (SGPT) 11 U/L (8-55); AST (SGOT) 15 U/L (5-34); Albumin 3.9 g/dL (3.5-5.0); Alkaline Phosphatase 91 U/L (40-110); Anion Gap 19 mmol/L (10-20); BUN (Urea Nitrogen) 7 mg/dL (7.0-18.7); Bilirubin, Total 0.3 mg/dL (0.2-1.2); Calc. Creatinine Clearance 0 mL/min (70-130); Calcium 8.1 mg/dL (7.8-10.44); Carbon Dioxide 26 mmol/L (22-29); Chloride 93 mmol/L (98-107); Globulin 4.4 g/dL (2.4-3.5); Glucose 326 mg/dL (70-105); Potassium 3.6 mmol/L (3.5-5.1); Protein, Total 8.3 g/dL (6.0-8.3); Sodium 134 mmol/L (136-145)
== END 2020-12-27 17:36 | disposition home or self-care (01) ==
LOC: ERS 16:07
DX: E10.65 Type 1 diabetes mellitus with hyperglycemia (principal); R42 Dizziness and giddiness
CPT/HCPCS: 36416; 80053; 82010; 85025; 93005

== ENCOUNTER 2021-06-19 10:57 | Emergency (ER) | payer SELFPAY ==
[2021-06-19 14:00] LABS: #Eosinphils 0.1 thou/uL (0.0-0.7); #Lymphocytes 1.7 thou/uL (1.20-3.40); #Monocytes 0.3 thou/uL (0.11-0.59); #Neutrophils 4.5 thou/uL (1.40-6.50); %Basophils 0.4 % (0.0-1.0); %Eosinophils 1.5 % (0.0-10.0); %Lymphocytes 25.8 % (21.0-51.0); %Monocytes 4.6 % (0.0-10.0); %Neutrophils 67.7 % (42.0-75.0); Hemoglobin 13.2 g/dL (12.0-16.0); Mean Corpuscular Volume 85.5 fL (78.0-98.0); Mean Platelet Volume 8.8 fL (7.4-10.4); Platelet Count 238 thou/uL (130-400); RBC Distribution Width 11.5 % (11.5-14.5); Red Blood Cell (RBC) Count 4.54 mill/uL (4.20-5.40); White Blood Cell (WBC) Count 6.7 thou/uL (4.8-10.8)
[2021-06-19 14:24] LABS: ALT (SGPT) Less than 7 U/L (8-55); AST (SGOT) 9 U/L (5-34); Albumin 3.4 g/dL (3.5-5.0); Alkaline Phosphatase 59 U/L (40-110); Anion Gap 11 mmol/L (10-20); BUN (Urea Nitrogen) 14 mg/dL (7.0-18.7); Bilirubin, Total 0.3 mg/dL (0.2-1.2); Calc. Creatinine Clearance 0 mL/min (70-130); Calcium 7.7 mg/dL (7.8-10.44); Carbon Dioxide 30 mmol/L (22-29); Chloride 100 mmol/L (98-107); Globulin 3.8 g/dL (2.4-3.5); Glucose 220 mg/dL (70-105); Potassium 4.1 mmol/L (3.5-5.1); Protein, Total 7.2 g/dL (6.0-8.3); Sodium 137 mmol/L (136-145)
== END 2021-06-19 16:41 | disposition home or self-care (01) ==
LOC: ERS 10:57
DX: E10.649 Type 1 diabetes mellitus with hypoglycemia without coma (principal); Z79.4 Long term (current) use of insulin
CPT/HCPCS: 36415; 36416; 80053; 85025; 99284

== ENCOUNTER 2021-07-10 17:44 | Emergency (ER) | payer SELFPAY ==
[2021-07-10 18:15] LABS: Actual Bicarbonate (HCO3v) 30 mEq/L (22-28); Analyzer IN Cardio ER; Base Excess 4.3 mEq/L (-2.0 to +3.0); Calcium, Ionized (venous) 0.86 mmol/L (1.16-1.32); Chloride (VBG) 93 mmol/L (98-106); Hemoglobin (Hb) 13.8 g/dL (11.7-15.5); Sodium 134.5 mmol/L (133-146)
[2021-07-10 18:36] LABS: #Basophils 0.1 thou/uL (0.0-0.2); #Eosinphils 0.1 thou/uL (0.0-0.7); #Lymphocytes 1.8 thou/uL (1.20-3.40); #Monocytes 0.2 thou/uL (0.11-0.59); %Lymphocytes 29.4 % (21.0-51.0); %Monocytes 3.8 % (0.0-10.0); %Neutrophils 63.9 % (42.0-75.0); Hemoglobin 13.2 g/dL (12.0-16.0); Mean Corpuscular HGB CONC 33.6 g/dL (32.0-36.0); Mean Corpuscular Hemoglobin 28.2 pg (27.0-31.0); Mean Platelet Volume 9.6 fL (7.4-10.4); Platelet Count 235 thou/uL (130-400); Red Blood Cell (RBC) Count 4.67 mill/uL (4.20-5.40); White Blood Cell (WBC) Count 6.2 thou/uL (4.8-10.8)
[2021-07-10 18:53] LABS: ALT (SGPT) 7 U/L (8-55); AST (SGOT) 10 U/L (5-34); Alkaline Phosphatase 79 U/L (40-110); Anion Gap 18 mmol/L (10-20); BUN (Urea Nitrogen) 6 mg/dL (7.0-18.7); Bilirubin, Total 0.6 mg/dL (0.2-1.2); Calc. Creatinine Clearance 0 mL/min (70-130); Calcium 7.5 mg/dL (7.8-10.44); Carbon Dioxide 28 mmol/L (22-29); Chloride 94 mmol/L (98-107); Globulin 4.3 g/dL (2.4-3.5); Glucose 468 mg/dL (70-105); Potassium 3.6 mmol/L (3.5-5.1); Protein, Total 8.3 g/dL (6.0-8.3); Sodium 136 mmol/L (136-145)
[2021-07-10] MEDS ORDERED: HumaLOG 300 UNITS/3 ML VIAL ONE (20:03)
[2021-07-10 22:31] LABS: Bilirubin Negative (Negative); Blood, Urine 1+ (Negative); Clarity Clear (Clear); Glucose, Urine (Dipstick) Greater than 1000 mg/dL (Negative); Ketone, Urine 40 mg/dL (Negative); Leukocyte Negative Leu/uL (Negative); Nitrite Negative (Negative); Protein, Urine (Dipstick) 30 mg/dL (Neg-Trace); RBC/HPF 0-3 HPF (0-3); Specific Gravity, Urine 1.039 (1.002-1.036); Squamous Epithelial 0-3 HPF (0-3); Urobilinogen Normal mg/dL (Less than 2); pH, Urine 5.5 (5.0-9.0)
[2021-07-10 22:46] LABS: Bacteria/HPF 4+ HPF (None Seen); WBC/HPF 0-3 HPF (0-3)
== END 2021-07-10 22:21 | disposition home or self-care (01) ==
LOC: ERS 17:44
DX: E10.65 Type 1 diabetes mellitus with hyperglycemia (principal); Z79.4 Long term (current) use of insulin
CPT/HCPCS: 36415; 36416; 80053; 81003; 81015; 82010; 82805; 85025; 99284; J1815

== ENCOUNTER 2021-10-04 20:23 | Emergency (ER) | payer SELFPAY | END 2021-10-04 23:40 | disposition home or self-care (01) | LOC: ERS 20:23 | DX: M54.50 Low back pain, unspecified (principal); E10.9 Type 1 diabetes mellitus without complications; Z79.4 Long term (current) use of insulin | CPT/HCPCS: 99283 ==

== ENCOUNTER 2022-04-15 09:17 | Inpatient (IN) | payer SELFPAY ==
[2022-04-15] MEDS ORDERED: Lidocaine 4% Cream 5 GM TUBE w/ Tegaderm ONE (09:48)
[2022-04-15] MEDS ORDERED: Clindamycin/D5W 900 mg/50 ml Premix Bag ONE (09:48)
[2022-04-15 10:24] LABS: #Eosinphils 0.1 thou/uL (0.0-0.7); #Lymphocytes 1.4 thou/uL (1.20-3.40); #Monocytes 0.4 thou/uL (0.11-0.59); #Neutrophils 6.3 thou/uL (1.40-6.50); %Basophils 0.3 % (0.0-1.0); %Eosinophils 1.6 % (0.0-10.0); %Lymphocytes 16.8 % (21.0-51.0); %Monocytes 4.8 % (0.0-10.0); %Neutrophils 76.6 % (42.0-75.0); BHCG - Serum Negative (NEGATIVE); Hemoglobin 11.3 g/dL (12.0-16.0); Mean Corpuscular HGB CONC 32.6 g/dL (32.0-36.0); Mean Corpuscular Hemoglobin 27.8 pg (27.0-31.0); Mean Corpuscular Volume 85.2 fL (78.0-98.0); Mean Platelet Volume 10.5 fL (7.4-10.4); Platelet Count 180 thou/uL (130-400); Pregs Control Background? CLEAR/WHITE (CLR/WHITE); Pregs Control Bar Appear? YES (CONTROL BAR); RBC Distribution Width 10.9 % (11.5-14.5); Red Blood Cell (RBC) Count 4.08 mill/uL (4.20-5.40); White Blood Cell (WBC) Count 8.2 thou/uL (4.8-10.8)
[2022-04-15 10:35] LABS: ALT (SGPT) 7 U/L (8-55); AST (SGOT) 8 U/L (5-34); Albumin 3.7 g/dL (3.5-5.0); Alkaline Phosphatase 61 U/L (40-110); Anion Gap 16 mmol/L (10-20); BUN (Urea Nitrogen) 15 mg/dL (7.0-18.7); Bilirubin, Total 0.6 mg/dL (0.2-1.2); Calc. Creatinine Clearance 0 mL/min (70-130); Calcium 7.7 mg/dL (7.8-10.44); Carbon Dioxide 26 mmol/L (22-29); Chloride 99 mmol/L (98-107); Estimated GFR 69; Globulin 3.5 g/dL (2.4-3.5); Glucose 409 mg/dL (70-105); Lipase 56 U/L (8-78); Magnesium 1.5 mg/dL (1.6-2.6); Potassium 3.7 mmol/L (3.5-5.1); Protein, Total 7.2 g/dL (6.0-8.3); Sodium 137 mmol/L (136-145)
[2022-04-15 13:16] LABS: Bacteria/HPF 4+ HPF (None Seen); Bilirubin Negative (Negative); Blood, Urine Trace (Negative); Clarity Clear (Clear); Glucose, Urine (Dipstick) Greater than 1000 mg/dL (Negative); Ketone, Urine 60 mg/dL (Negative); Leukocyte Negative Leu/uL (Negative); Nitrite 2+ (Negative); Protein, Urine (Dipstick) Negative (Neg-Trace); RBC/HPF 0-3 HPF (0-3); Specific Gravity, Urine 1.034 (1.002-1.036); Squamous Epithelial 0-3 HPF (0-3); Urobilinogen Normal mg/dL (Less than 2); WBC/HPF 0-3 HPF (0-3); pH, Urine 5.5 (5.0-9.0)
[2022-04-15] MEDS ORDERED: Magnesium 2 GM/50 ML BAG (IN WATER) ONE (13:22)
[2022-04-15] MEDS ORDERED: Ondansetron PF 4 MG/2 ML Vial IVP PRN (14:53)
[2022-04-15] MEDS ORDERED: Ondansetron ODT 4 MG TAB PO PRN (14:53)
[2022-04-15] MEDS ORDERED: hydrALAZINE 20 MG/ML VIAL SLOW IVP PRN (14:53)
[2022-04-15] MEDS ORDERED: Acetaminophen 650 MG Suppository PR PRN (14:53)
[2022-04-15] MEDS ORDERED: Dextrose 50% Abboject 50 ML SYRINGE SLOW IVP PRN (14:55)
[2022-04-15] MEDS ORDERED: HumaLOG 300 UNITS/3 ML VIAL SC PRN (14:55)
[2022-04-15] MEDS ORDERED: Dextrose 5% in Water 1,000 ML IV PRN (14:55)
[2022-04-15] MEDS: cefTRIAXone\\ROCEPHIN 1 GM in Sodium Chloride 0.9% 100 ML IVPB SCH (20:57)
[2022-04-15] MEDS: Atorvastatin Calcium 40 MG TAB PO SCH (21:02)
[2022-04-15] MEDS: Insulin Glargine 30 UNITS/0.3 ML VIAL SC SCH (21:04)
[2022-04-15] MEDS: HumaLOG 300 UNITS/3 ML VIAL SC PRN (21:14)
[2022-04-15 22:25] VITALS: BMI 18.7
[2022-04-16] MEDS: Acetaminophen 325 MG TAB PO PRN ×2 (04:24→20:36)
[2022-04-16] MEDS ORDERED: Triple Antibiotic Oint 1 GM Packet TOP SCH (04:30)
[2022-04-16 05:20] LABS: #Eosinphils 0.2 thou/uL (0.0-0.7); #Lymphocytes 1.6 thou/uL (1.20-3.40); #Monocytes 0.3 thou/uL (0.11-0.59); #Neutrophils 4.6 thou/uL (1.40-6.50); %Basophils 0.2 % (0.0-1.0); %Eosinophils 2.5 % (0.0-10.0); %Lymphocytes 24.5 % (21.0-51.0); %Monocytes 4.8 % (0.0-10.0); Hemoglobin 10.3 g/dL (12.0-16.0); Mean Corpuscular HGB CONC 32.9 g/dL (32.0-36.0); Mean Corpuscular Hemoglobin 28.4 pg (27.0-31.0); Mean Corpuscular Volume 86.3 fl (78.0-98.0); Platelet Count 177 thou/uL (130-400); RBC Distribution Width 11.1 % (11.5-14.5); Red Blood Cell (RBC) Count 3.61 mill/uL (4.20-5.40); White Blood Cell (WBC) Count 6.7 thou/uL (4.8-10.8)
[2022-04-16 05:44] LABS: Anion Gap 13 mmol/L (10-20); BUN (Urea Nitrogen) 11 mg/dL (7.0-18.7); Calc. Creatinine Clearance 75 mL/min (70-130); Calcium 7.2 mg/dL (7.8-10.44); Carbon Dioxide 27 mmol/L (22-29); Cardiac Risk 2.9 (Less than 4.5); Chloride 102 mmol/L (98-107); Cholesterol 138 mg/dl (< 200 Desired); Estimated GFR 93; Glucose 201 mg/dL (70-105); HDL Cholesterol 48 mg/dL (>60 Neg Risk); LDL Cholesterol, Calculated 79 mg/dL; Potassium 3.1 mmol/L (3.5-5.1); Sodium 139 mmol/L (136-145); Triglycerides 53 mg/dL (Less than 150)
[2022-04-16] MEDS ORDERED: FLU VACC QS2022-23(6MOS UP)/PF 60 MCG/0.5 ML SYRINGE IM ONE (09:00)
[2022-04-16] MEDS: Aspirin 81 mg Enteric Coated Tablet PO SCH (09:25)
[2022-04-16] MEDS: Triple Antibiotic Oint 1 GM Packet TOP SCH ×2 (09:30→20:23)
[2022-04-16 10:07] LABS: Hemoglobin A1c 10.5 % (4.0-6.0)
[2022-04-16 11:58] LABS: Magnesium 1.7 mg/dL (1.6-2.6)
[2022-04-16] MEDS ORDERED: Potassium Chloride 20 MEQ TAB PO SCH (15:00)
[2022-04-16] MEDS ORDERED: Magnesium 2 GM/50 ML(in water) 2 GM in Premix Bag 1 BAG IVPB SCH (15:00)
[2022-04-16] MEDS ORDERED: Calcium Carbonate 600 MG + Vit D TAB PO SCH (17:00)
[2022-04-16] MEDS: cefTRIAXone\\ROCEPHIN 1 GM in Sodium Chloride 0.9% 100 ML IVPB SCH (17:39)
[2022-04-16] MEDS: Insulin Glargine 30 UNITS/0.3 ML VIAL SC SCH (20:22)
[2022-04-16] MEDS: HumaLOG 300 UNITS/3 ML VIAL SC PRN (20:23)
[2022-04-16] MEDS: Atorvastatin Calcium 40 MG TAB PO SCH (20:24)
[2022-04-17 05:25] LABS: #Eosinphils 0.3 thou/uL (0.0-0.7); #Lymphocytes 1.9 thou/uL (1.20-3.40); #Monocytes 0.3 thou/uL (0.11-0.59); #Neutrophils 2.9 thou/uL (1.40-6.50); %Basophils 0.7 % (0.0-1.0); %Eosinophils 5.1 % (0.0-10.0); %Monocytes 5.8 % (0.0-10.0); %Neutrophils 53.4 % (42.0-75.0); Hemoglobin 10.7 g/dL (12.0-16.0); Mean Corpuscular HGB CONC 32.9 g/dL (32.0-36.0); Mean Corpuscular Hemoglobin 28.5 pg (27.0-31.0); Mean Corpuscular Volume 86.5 fl (78.0-98.0); Mean Platelet Volume 10.4 fL (7.4-10.4); Platelet Count 189 thou/uL (130-400); RBC Distribution Width 11.2 % (11.5-14.5); Red Blood Cell (RBC) Count 3.74 mill/uL (4.20-5.40); White Blood Cell (WBC) Count 5.5 thou/uL (4.8-10.8)
[2022-04-17 06:21] LABS: Anion Gap 13 mmol/L (10-20); BUN (Urea Nitrogen) 12 mg/dL (7.0-18.7); Calc. Creatinine Clearance 74 mL/min (70-130); Calcium 7.3 mg/dL (7.8-10.44); Carbon Dioxide 29 mmol/L (22-29); Chloride 105 mmol/L (98-107); Estimated GFR 90; Glucose 109 mg/dL (70-105); Magnesium 1.9 mg/dL (1.6-2.6); Potassium 3.5 mmol/L (3.5-5.1); Sodium 143 mmol/L (136-145)
[2022-04-17] MEDS: Aspirin 81 mg Enteric Coated Tablet PO SCH (10:02)
[2022-04-17] MEDS: Triple Antibiotic Oint 1 GM Packet TOP SCH (10:03)
[2022-04-17 11:57] VITALS: BP 125/86; TEMP 98.4
== END 2022-04-17 15:45 | disposition home or self-care (01) | DRG 57 ==
LOC: ERS 09:17 → ERHOLD 13:45 → NEURO 18:24 → OBSVTOIN 04-16 17:32
PROVIDERS: ADMIT Internal Medicine; ATTEND Internal Medicine
DX: G23.8 Other specified degenerative diseases of basal ganglia (principal); N39.0 Urinary tract infection, site not specified; Z20.822 Contact with and (suspected) exposure to COVID-19; R47.1 Dysarthria and anarthria; R29.810 Facial weakness; E10.65 Type 1 diabetes mellitus with hyperglycemia; E83.42 Hypomagnesemia; S01.511A Laceration without foreign body of lip, initial encounter; E83.51 Hypocalcemia; W18.30XA Fall on same level, unspecified, initial encounter; Z79.4 Long term (current) use of insulin; Z88.8 Allergy status to other drugs, medicaments and biological substances; Z90.49 Acquired absence of other specified parts of digestive tract
CPT/HCPCS: 36415; 36416; 70450; 70551; 71045; 80048; 80053; 80061; 81003; 81015; 82010; 82306; 82330; 83036; 83690; 83735; 83970; 84100; 84443; 84484; 84703; 85025; 93005; 93306; 93880; 94760; 95712; 95819; 95957; 96365; 96367; 96375; 96376; G0378; J0696; J1815; J3475; J3490; U0003; U0005

== ENCOUNTER 2022-05-21 14:45 | Emergency (ER) | payer SELFPAY ==
[2022-05-21 15:47] LABS: #Eosinphils 0.1 thou/uL (0.0-0.7); #Lymphocytes 1.1 thou/uL (1.20-3.40); #Monocytes 0.2 thou/uL (0.11-0.59); #Neutrophils 4.9 thou/uL (1.40-6.50); %Basophils 0.2 % (0.0-1.0); %Eosinophils 1.1 % (0.0-10.0); %Lymphocytes 17.2 % (21.0-51.0); %Monocytes 3.8 % (0.0-10.0); %Neutrophils 77.8 % (42.0-75.0); Hemoglobin 12.2 g/dL (12.0-16.0); Mean Corpuscular HGB CONC 33.7 g/dL (32.0-36.0); Mean Corpuscular Hemoglobin 28.6 pg (27.0-31.0); Mean Platelet Volume 10.2 fL (7.4-10.4); Platelet Count 254 10x3/uL (130-400); RBC Distribution Width 11.8 % (11.5-14.5); Red Blood Cell (RBC) Count 4.26 mill/uL (4.20-5.40); White Blood Cell (WBC) Count 6.3 10x3/uL (4.8-10.8)
[2022-05-21 16:00] LABS: BHCG - Serum Negative (NEGATIVE); Pregs Control Background? CLEAR/WHITE (CLR/WHITE); Pregs Control Bar Appear? YES (CONTROL BAR)
[2022-05-21 16:07] LABS: ALT (SGPT) 7 U/L (8-55); AST (SGOT) 9 U/L (5-34); Albumin 3.9 g/dL (3.5-5.0); Alkaline Phosphatase 60 U/L (40-110); Anion Gap 17 mmol/L (10-20); BUN (Urea Nitrogen) 13 mg/dL (7.0-18.7); Bilirubin, Total 0.6 mg/dL (0.2-1.2); Calc. Creatinine Clearance 0 mL/min (70-130); Calcium 7.5 mg/dL (7.8-10.44); Carbon Dioxide 26 mmol/L (22-29); Chloride 98 mmol/L (98-107); Estimated GFR 54; Globulin 3.7 g/dL (2.4-3.5); Magnesium 1.6 mg/dL (1.6-2.6); Potassium 4.2 mmol/L (3.5-5.1); Protein, Total 7.6 g/dL (6.0-8.3); Sodium 137 mmol/L (136-145)
[2022-05-21 16:17] LABS: Glucose 438 mg/dL (70-105)
[2022-05-21] MEDS ORDERED: Magnesium 2 GM/50 ML BAG (IN WATER) ONE (17:40)
[2022-05-21 17:55] LABS: Bilirubin Negative (Negative); Blood, Urine Negative (Negative); Clarity Turbid (Clear); Glucose, Urine (Dipstick) Greater than 1000 mg/dL (Negative); Ketone, Urine 40 mg/dL (Negative); Leukocyte 25 Leu/uL (Negative); Nitrite Negative (Negative); Protein, Urine (Dipstick) 10 mg/dL (Neg-Trace); RBC/HPF 0-3 HPF (0-3); Specific Gravity, Urine 1.037 (1.002-1.036); Squamous Epithelial 0-3 HPF (0-3); Urobilinogen Normal mg/dL (Less than 2); WBC/HPF 21-50 HPF (0-3)
[2022-05-21 17:56] LABS: Bacteria/HPF 1+ HPF (None Seen)
== END 2022-05-21 19:58 | disposition home or self-care (01) ==
LOC: ERS 14:45
DX: E10.65 Type 1 diabetes mellitus with hyperglycemia (principal); Z79.4 Long term (current) use of insulin; N10 Acute pyelonephritis; E83.42 Hypomagnesemia
CPT/HCPCS: 36415; 36416; 71045; 80053; 81003; 81015; 83735; 84484; 84703; 85025; 87077; 87086; 87186; 93005; 96365; J3475

== ENCOUNTER 2022-06-10 12:23 | Emergency (ER) | payer SELFPAY ==
[2022-06-10 14:31] LABS: BHCG - Serum Negative (NEGATIVE); Pregs Control Background? CLEAR/WHITE (CLR/WHITE); Pregs Control Bar Appear? YES (CONTROL BAR)
[2022-06-10] MEDS ORDERED: Ketorolac Tromethamine 30 MG/ML VIAL ONE (14:39)
[2022-06-10] MEDS ORDERED: Diazepam 5 MG TAB ONE (14:40)
== END 2022-06-10 15:45 | disposition home or self-care (01) ==
LOC: ERS 12:23
DX: M54.41 Lumbago with sciatica, right side (principal); E10.9 Type 1 diabetes mellitus without complications; Z79.899 Other long term (current) drug therapy
CPT/HCPCS: 36415; 84703; 96372; 99283; J1885

== ENCOUNTER 2022-08-29 10:49 | Emergency (ER) | payer SELFPAY ==
[2022-08-29] MEDS ORDERED: Ketorolac Tromethamine 30 MG/ML VIAL ONE (12:29)
[2022-08-29] MEDS ORDERED: Orphenadrine Citrate 60 MG/2 ML VIAL ONE (12:33)
[2022-08-29 13:29] LABS: Bilirubin Negative (Negative); Blood, Urine Trace (Negative); Glucose, Urine (Dipstick) 500 mg/dL (Negative); Ketone, Urine Trace mg/dL (Negative); Leukocyte Negative (Negative); Nitrite Negative (Negative); Protein, Urine (Dipstick) 30 mg/dL (Neg-Trace); Specific Gravity, Urine 1.025 (1.005-1.030); Urobilinogen 0.2 mg/dL (Less than 2); pH, Urine 7.5 (5.0-9.0)
[2022-08-29 13:30] LABS: Clarity Hazy (Clear)
[2022-08-29 13:36] LABS: Bacteria/HPF 4+ HPF (None Seen); RBC/HPF 0-3 HPF (0-3)
== END 2022-08-29 14:43 | disposition home or self-care (01) ==
LOC: ERS 10:49
DX: M54.41 Lumbago with sciatica, right side (principal); R30.0 Dysuria; E10.9 Type 1 diabetes mellitus without complications
CPT/HCPCS: 81003; 81015; 87086; 96372; 99283; J1885; J2360

== ENCOUNTER 2023-04-08 07:02 | Observation (INO) | payer MEDICAID, SELFPAY ==
[2023-04-08] MEDS ORDERED: Ondansetron PF 4 MG/2 ML Vial ONE ×2 (07:27→08:34)
[2023-04-08 07:37] LABS: Actual Bicarbonate (HCO3v) 21.3 mEq/L (22-28); Base Excess -5.1 mEq/L (-2.0 to +3.0); Calcium, Ionized (venous) 0.97 mmol/L (1.16-1.32); Chloride (VBG) 94 mmol/L (98-106); Hematocrit-VBG 38 % (36.0-47.0); Potassium (VBG) 4.51 mmol/L (3.70-5.30); Sodium 136 mmol/L (133-146); pH (venous) 7.296 (7.32-7.43)
[2023-04-08 07:38] LABS: #Monocytes 0.7 thou/uL (0.11-0.59); #Neutrophils 9.4 thou/uL (1.40-6.50); %Basophils 0.3 % (0.0-1.0); %Eosinophils 0.2 % (0.0-10.0); %Monocytes 5.5 % (0.0-10.0); %Neutrophils 79.7 % (42.0-75.0); Hematocrit 35.7 % (36.0-47.0); Hemoglobin 11.7 g/dL (12.0-16.0); Mean Corpuscular HGB CONC 32.8 g/dL (32.0-36.0); Mean Corpuscular Hemoglobin 28.6 pg (27.0-31.0); Mean Corpuscular Volume 87.3 fl (78.0-98.0); Mean Platelet Volume 11.9 fL (7.4-10.4); Platelet Count 277 10x3/uL (130-400); RBC Distribution Width 12.9 % (11.5-14.5); Red Blood Cell (RBC) Count 4.09 mill/uL (4.20-5.40); White Blood Cell (WBC) Count 11.9 10x3/uL (4.8-10.8)
[2023-04-08 08:07] LABS: ALT (SGPT) 12 U/L (8-55); AST (SGOT) 17 U/L (5-34); Albumin 4.7 g/dL (3.5-5.0); Alkaline Phosphatase 80 U/L (40-110); Anion Gap 26 mmol/L (10-20); BUN (Urea Nitrogen) 15 mg/dL (7.0-18.7); Bilirubin, Total 0.4 mg/dL (0.2-1.2); Calc. Creatinine Clearance 0 mL/min (70-130); Calcium 8.2 mg/dL (7.8-10.44); Carbon Dioxide 21 mmol/L (22-29); Chloride 93 mmol/L (98-107); Estimated GFR 59; Glucose 456 mg/dL (70-105); Lipase 44 U/L (8-78); Magnesium 1.8 mg/dL (1.6-2.6); Potassium 4.8 mmol/L (3.5-5.1); Protein, Total 8.7 g/dL (6.0-8.3); Sodium 135 mmol/L (136-145)
[2023-04-08] MEDS ORDERED: Insulin Regular 300 UNITS/3 ML VIAL ONE (08:35)
[2023-04-08 08:43] LABS: BHCG - Serum Negative (NEGATIVE); Pregs Control Background? CLEAR/WHITE (CLR/WHITE); Pregs Control Bar Appear? YES (CONTROL BAR)
[2023-04-08] MEDS ORDERED: Dextrose 5% in Water 1,000 ML IV PRN (08:52)
[2023-04-08] MEDS ORDERED: Insulin Regular 300 UNITS/3 ML VIAL SC PRN ×2 (08:52)
[2023-04-08] MEDS ORDERED: Glucagon 1 MG/ML KIT IM PRN (08:52)
[2023-04-08] MEDS ORDERED: Dextrose 50% Abboject 50 ML SYRINGE SLOW IVP PRN (08:52)
[2023-04-08] MEDS ORDERED: Senokot S 8.6-50 MG TAB PO PRN (08:54)
[2023-04-08] MEDS ORDERED: Acetaminophen 325 MG TAB PO PRN (08:54)
[2023-04-08] MEDS ORDERED: Ondansetron ODT 4 MG TAB PO PRN (08:54)
[2023-04-08] MEDS ORDERED: Dicyclomine 10 MG CAP PO PRN (08:55)
[2023-04-08 09:07] LABS: Bilirubin Negative (Negative); Blood, Urine Small (Negative); Clarity Clear (Clear); Glucose, Urine (Dipstick) >=1000 mg/dL (Negative); Ketone, Urine > or equal to 80 mg/dL (Negative); Leukocyte Negative (Negative); Nitrite Negative (Negative); Protein, Urine (Dipstick) Negative (Neg-Trace); Urobilinogen 0.2 mg/dL (Less than 2)
[2023-04-08 09:08] LABS: Pregnancy Test - Urine (BHCG) Negative (Negative); Pregu Control Background? CLEAR/WHITE (CLR/WHITE); Pregu Control Bar Appear? YES (CONTROL BAR)
[2023-04-08 09:12] LABS: Bacteria/HPF 1+ HPF (None Seen); CAUTI Indications for Culture Dysuria,urgency,freq; RBC/HPF 0-3 HPF (0-3); WBC/HPF None Seen HPF (0-3)
[2023-04-08 09:14] LABS: Urine Culture Reflex No No
[2023-04-08 09:48] LABS: Troponin I Less than 0.010 ng/mL (< 0.028)
[2023-04-08] MEDS ORDERED: Insulin Glargine 30 UNITS/0.3 ML VIAL SC SCH ×2 (10:00)
[2023-04-08] MEDS ORDERED: Magnesium 2 GM/50 ML(in water) 2 GM in Premix Bag 1 BAG IVPB SCH (10:00)
[2023-04-08] MEDS ORDERED: Ondansetron PF 4 MG/2 ML Vial IVP SCH (11:15)
[2023-04-08] MEDS: Heparin 5,000 UNITS/ML VIAL SC SCH ×2 (11:16→20:55)
[2023-04-08] MEDS: Insulin Glargine 30 UNITS/0.3 ML VIAL SC SCH ×2 (11:35→23:04)
[2023-04-08] MEDS: Famotidine/PF 20 mg/2ml Vial SLOW IVP SCH ×2 (11:37→20:57)
[2023-04-08] MEDS: Famotidine 20 MG TAB PO SCH ×2 (11:37→20:55)
[2023-04-08] MEDS: Sodium Chloride 0.9% 1,000 ML IV SCH ×2 (11:39→17:06)
[2023-04-08 12:06] LABS: Lactic Acid 1.3 mmol/L (0.5-2.2)
[2023-04-08 16:35] LABS: Anion Gap 16 mmol/L (10-20); BUN (Urea Nitrogen) 9 mg/dL (7.0-18.7); Calc. Creatinine Clearance 0 mL/min (70-130); Calcium 7.1 mg/dL (7.8-10.44); Carbon Dioxide 23 mmol/L (22-29); Chloride 101 mmol/L (98-107); Estimated GFR 98; Glucose 211 mg/dL (70-105); Potassium 3.2 mmol/L (3.5-5.1); Sodium 137 mmol/L (136-145)
[2023-04-08 16:46] VITALS: BMI 17.8
[2023-04-08 16:56] LABS: Phosphorus 3.8 mg/dL (2.3-4.7)
[2023-04-08] MEDS: NS 0.9% w/ 20 MEQ KCL 1,000 ML/1,000 ML BAG IV SCH (17:35)
[2023-04-08] MEDS: Ondansetron PF 4 MG/2 ML Vial IVP PRN ×2 (18:13→20:51)
[2023-04-08 18:57] LABS: Bilirubin Negative (Negative); Blood, Urine Small (Negative); Glucose, Urine (Dipstick) >=1000 mg/dL (Negative); Ketone, Urine > or equal to 80 mg/dL (Negative); Leukocyte Negative (Negative); Nitrite Negative (Negative); Protein, Urine (Dipstick) 30 mg/dL (Neg-Trace); Urobilinogen 0.2 mg/dL (Less than 2)
[2023-04-08 18:59] LABS: Clarity Cloudy (Clear); Specific Gravity, Urine 1.029 (1.002-1.036)
[2023-04-08 19:09] LABS: Bacteria/HPF 4+ HPF (None Seen); RBC/HPF 0-3 HPF (0-3); WBC/HPF 0-3 HPF (0-3)
[2023-04-08] MEDS ORDERED: traZODone HCl 50 MG TAB PO PRN (20:47)
[2023-04-09] MEDS: NS 0.9% w/ 20 MEQ KCL 1,000 ML/1,000 ML BAG IV SCH ×2 (03:55→08:52)
[2023-04-09 05:15] LABS: #Eosinphils 0.1 thou/uL (0.0-0.7); #Monocytes 0.5 thou/uL (0.11-0.59); #Neutrophils 4.9 thou/uL (1.40-6.50); %Basophils 0.4 % (0.0-1.0); %Lymphocytes 24.6 % (21.0-51.0); %Monocytes 6.7 % (0.0-10.0); %Neutrophils 67.2 % (42.0-75.0); Hemoglobin 10.1 g/dL (12.0-16.0); Mean Corpuscular HGB CONC 32.6 g/dL (32.0-36.0); Mean Corpuscular Hemoglobin 28.7 pg (27.0-31.0); Mean Corpuscular Volume 88.1 fl (78.0-98.0); Mean Platelet Volume 11.3 fL (7.4-10.4); Platelet Count 235 10x3/uL (130-400); RBC Distribution Width 13.2 % (11.5-14.5); Red Blood Cell (RBC) Count 3.52 mill/uL (4.20-5.40); White Blood Cell (WBC) Count 7.4 10x3/uL (4.8-10.8)
[2023-04-09 06:50] LABS: Albumin 3.4 g/dL (3.5-5.0); Anion Gap 13 mmol/L (10-20); BUN (Urea Nitrogen) 6 mg/dL (7.0-18.7); Bilirubin, Total 0.4 mg/dL (0.2-1.2); Calc. Creatinine Clearance 77 mL/min (70-130); Calcium 6.9 mg/dL (7.8-10.44); Carbon Dioxide 25 mmol/L (22-29); Chloride 104 mmol/L (98-107); Estimated GFR 102; Globulin 2.7 g/dL (2.4-3.5); Glucose 132 mg/dL (70-105); Potassium 3.5 mmol/L (3.5-5.1); Protein, Total 6.1 g/dL (6.0-8.3); Sodium 138 mmol/L (136-145)
[2023-04-09 06:51] LABS: ALT (SGPT) 9 U/L (8-55); AST (SGOT) 11 U/L (5-34); Alkaline Phosphatase 62 U/L (40-110); Magnesium 1.7 mg/dL (1.6-2.6); Phosphorus 3.4 mg/dL (2.3-4.7)
[2023-04-09] MEDS: Famotidine/PF 20 mg/2ml Vial SLOW IVP SCH (08:52)
[2023-04-09] MEDS: Heparin 5,000 UNITS/ML VIAL SC SCH (08:52)
[2023-04-09] MEDS: Famotidine 20 MG TAB PO SCH (08:52)
[2023-04-09] MEDS: Insulin Glargine 30 UNITS/0.3 ML VIAL SC SCH (09:19)
[2023-04-09 16:27] VITALS: BP 144/104; TEMP 98.6
== END 2023-04-09 16:29 | disposition home or self-care (01) ==
LOC: ERS 07:02 → 2SW 08:38
PROVIDERS: ADMIT Internal Medicine; ATTEND Family Medicine
DX: E10.10 Type 1 diabetes mellitus with ketoacidosis without coma (principal); N17.9 Acute kidney failure, unspecified; E87.1 Hypo-osmolality and hyponatremia; E83.42 Hypomagnesemia; R11.2 Nausea with vomiting, unspecified; Z88.5 Allergy status to narcotic agent; Z79.4 Long term (current) use of insulin; Z79.899 Other long term (current) drug therapy; Z90.49 Acquired absence of other specified parts of digestive tract
CPT/HCPCS: 36415; 36416; 80053; 81001; 81025; 82010; 82805; 83605; 83690; 83735; 84100; 84484; 84703; 85025; 93005; 94760; 96361; 96374; 96375; 96376; G0378; J1644; J1815; J2405; J3475; J3480; J7050; S0028

== ENCOUNTER 2023-04-21 09:02 | Emergency (ER) | payer BC, SELFPAY ==
[2023-04-21] MEDS ORDERED: Ketorolac Tromethamine 30 MG/ML VIAL ONE (09:37)
[2023-04-21 09:48] LABS: #Eosinphils 0.1 thou/uL (0.0-0.7); #Monocytes 0.3 thou/uL (0.11-0.59); %Basophils 0.5 % (0.0-1.0); %Eosinophils 1.3 % (0.0-10.0); %Lymphocytes 16.7 % (21.0-51.0); %Monocytes 4.2 % (0.0-10.0); Hematocrit 35.7 % (36.0-47.0); Hemoglobin 11.6 g/dL (12.0-16.0); Mean Corpuscular HGB CONC 32.5 g/dL (32.0-36.0); Mean Corpuscular Hemoglobin 28.6 pg (27.0-31.0); Mean Corpuscular Volume 88.1 fl (78.0-98.0); Mean Platelet Volume 11.5 fL (7.4-10.4); Platelet Count 250 10x3/uL (130-400); RBC Distribution Width 12.6 % (11.5-14.5); Red Blood Cell (RBC) Count 4.05 mill/uL (4.20-5.40); White Blood Cell (WBC) Count 7.8 10x3/uL (4.8-10.8)
[2023-04-21 10:10] LABS: ALT (SGPT) 26 U/L (8-55); AST (SGOT) 23 U/L (5-34); Alkaline Phosphatase 78 U/L (40-110); Anion Gap 15 mmol/L (10-20); BUN (Urea Nitrogen) 11 mg/dL (7.0-18.7); Bilirubin, Total 0.5 mg/dL (0.2-1.2); Calc. Creatinine Clearance 0 mL/min (70-130); Calcium 7.4 mg/dL (7.8-10.44); Carbon Dioxide 29 mmol/L (22-29); Chloride 100 mmol/L (98-107); Estimated GFR 87; Globulin 3.6 g/dL (2.4-3.5); Glucose 309 mg/dL (70-105); Potassium 4.6 mmol/L (3.5-5.1); Protein, Total 7.6 g/dL (6.0-8.3); Sodium 139 mmol/L (136-145)
[2023-04-21] MEDS ORDERED: Insulin Regular 300 UNITS/3 ML VIAL ONE (10:32)
[2023-04-21 13:09] LABS: Anion Gap 13 mmol/L (10-20); BUN (Urea Nitrogen) 12 mg/dL (7.0-18.7); Calc. Creatinine Clearance 0 mL/min (70-130); Carbon Dioxide 26 mmol/L (22-29); Chloride 106 mmol/L (98-107); Estimated GFR 98; Glucose 169 mg/dL (70-105); Potassium 4.2 mmol/L (3.5-5.1); Sodium 141 mmol/L (136-145)
[2023-04-21 13:31] LABS: Calcium 6.8 mg/dL (7.8-10.44)
== END 2023-04-21 13:46 | disposition home or self-care (01) ==
LOC: ERS 09:02
DX: M54.50 Low back pain, unspecified (principal); E10.65 Type 1 diabetes mellitus with hyperglycemia; Z79.899 Other long term (current) drug therapy
CPT/HCPCS: 36415; 36416; 80053; 82010; 85025; 96361; 96374; J1815; J1885